=== PATIENT | male | born 1945 | race Caucasian/White ===

== ENCOUNTER 2020-09-06 08:11 | Outpatient (REF) | payer MEDICARE, SELFPAY ==
[2020-09-06 11:33] LABS: Estimated Average Glucose 160 mg/dL; Hemoglobin A1c % 7.2 %
== END 2020-09-06 08:12 | disposition home or self-care (01) ==
LOC: HO.MANLR 08:11
PROVIDERS: PCP Internal Medicine; Visit Provider Internal Medicine
DX: E11.9 Type 2 diabetes mellitus without complications (principal)
CPT/HCPCS: 83036

== ENCOUNTER 2020-12-06 08:24 | Outpatient (REF) | payer MEDICARE, SELFPAY ==
[2020-12-06 11:32] LABS: Estimated Average Glucose 148 mg/dL; Hemoglobin A1c % 6.8 %
[2020-12-06 11:54] LABS: Alanine Aminotransferase 37 U/L (0-40); Albumin Level 4.4 g/dL (3.5-5.0); Alkaline Phosphatase 56 U/L (39-117); Anion Gap 15 (12-20); Aspartate Amino Transferase 22 U/L (5-37); Bilirubin Total 1.2 mg/dL (0.0-1.0); Blood Urea Nitrogen 13 mg/dL (9-16); Calcium 9.5 mg/dL (8.4-10.2); Carbon Dioxide 27 mmol/L (22-29); Chloride 102 mmol/L (96-108); Cholesterol 121 mg/dL; Estimated Glomerular Filt Rate > 60; Glucose Fasting 164 mg/dL (60-99); HDL Cholesterol 37 mg/dL; LDL Cholesterol Calculated 55 mg/dl; Potassium 4.3 mmol/l (3.3-5.1); Sodium 140 mmol/L (135-145); Total Protein 6.9 g/dL (6.5-8.0); Triglycerides 149 mg/dL
== END 2020-12-06 08:25 | disposition home or self-care (01) ==
LOC: HO.MANLR 08:24
PROVIDERS: PCP Internal Medicine; Visit Provider Internal Medicine
DX: E11.9 Type 2 diabetes mellitus without complications (principal)
CPT/HCPCS: 36415; 80053; 80061; 83036

== ENCOUNTER 2021-04-02 08:04 | Outpatient (REF) | payer MEDICARE, SELFPAY ==
[2021-04-02 12:02] LABS: Alanine Aminotransferase 29 U/L (0-40); Albumin Level 4.4 g/dL (3.5-5.0); Alkaline Phosphatase 57 U/L (39-117); Anion Gap 13 (12-20); Aspartate Amino Transferase 20 U/L (5-37); Blood Urea Nitrogen 17 mg/dL (9-16); Calcium 9.4 mg/dL (8.4-10.2); Carbon Dioxide 28 mmol/L (22-29); Chloride 105 mmol/L (96-108); Cholesterol 115 mg/dL; Estimated Glomerular Filt Rate > 60; Glucose Fasting 147 mg/dL (60-99); HDL Cholesterol 36 mg/dL; LDL Cholesterol Calculated 61 mg/dl; Potassium 4.5 mmol/L (3.3-5.1); Sodium 141 mmol/L (135-145); Total Protein 6.8 g/dL (6.5-8.0); Triglycerides 92 mg/dL
[2021-04-02 12:12] LABS: Estimated Average Glucose 148 mg/dL; Hemoglobin A1c % 6.8 %
[2021-04-02 12:48] LABS: Creatinine Urine 236.88 mg/dL; Microalbum/Creatinine Ratio Ur 7.1 ug/mg cr
== END 2021-04-02 08:05 | disposition home or self-care (01) ==
LOC: HO.MANLDS 08:04
PROVIDERS: PCP Internal Medicine; Visit Provider Internal Medicine
DX: E11.9 Type 2 diabetes mellitus without complications (principal)
CPT/HCPCS: 36415; 80053; 80061; 82043; 83036

== ENCOUNTER 2021-07-09 08:13 | Outpatient (REF) | payer MEDICARE, SELFPAY ==
[2021-07-09 11:19] LABS: Estimated Average Glucose 131 mg/dL; Hemoglobin A1c % 6.2 %
== END 2021-07-09 08:14 | disposition home or self-care (01) ==
LOC: HO.MANLDS 08:13
PROVIDERS: PCP Internal Medicine; Visit Provider Internal Medicine
DX: E11.9 Type 2 diabetes mellitus without complications (principal)
CPT/HCPCS: 36415; 83036

== ENCOUNTER 2021-11-20 08:14 | Outpatient (REF) | payer MEDICARE, SELFPAY ==
[2021-11-20 11:39] LABS: Estimated Average Glucose 143 mg/dL; Hemoglobin A1c % 6.6 %
[2021-11-20 12:20] LABS: Creatinine Urine 197.21 mg/dL; Microalbum/Creatinine Ratio Ur 16.2 ug/mg cr
[2021-11-20 12:20] LABS: Alanine Aminotransferase 31 U/L (0-40); Albumin Level 4.3 g/dL (3.5-5.0); Alkaline Phosphatase 69 U/L (39-117); Anion Gap 11 (12-20); Aspartate Amino Transferase 20 U/L (5-37); Bilirubin Total 0.6 mg/dL (0.0-1.0); Blood Urea Nitrogen 13 mg/dL (9-16); Calcium 9.6 mg/dL (8.4-10.2); Carbon Dioxide 28 mmol/L (22-29); Chloride 105 mmol/L (96-108); Cholesterol 132 mg/dL; Estimated Glomerular Filt Rate > 60; Glucose Fasting 175 mg/dL (60-99); HDL Cholesterol 40 mg/dL; LDL Cholesterol Calculated 74 mg/dl; Potassium 4.4 mmol/L (3.3-5.1); Sodium 140 mmol/L (135-145); Total Protein 7.1 g/dL (6.5-8.0); Triglycerides 92 mg/dL
== END 2021-11-20 08:15 | disposition home or self-care (01) ==
LOC: HO.MANLDS 08:14
PROVIDERS: PCP Internal Medicine; Visit Provider Internal Medicine
DX: E11.9 Type 2 diabetes mellitus without complications (principal)
CPT/HCPCS: 36415; 80053; 80061; 82043; 83036

== ENCOUNTER 2022-04-17 08:01 | Outpatient (REF) | payer MEDICARE, SELFPAY ==
[2022-04-17 11:38] LABS: Estimated Average Glucose 143 mg/dL; Hemoglobin A1c % 6.6 %
[2022-04-17 11:50] LABS: Alanine Aminotransferase 27 U/L (0-40); Albumin Level 4.3 g/dL (3.5-5.0); Alkaline Phosphatase 53 U/L (39-117); Anion Gap 13 (12-20); Aspartate Amino Transferase 22 U/L (5-37); Blood Urea Nitrogen 21 mg/dL (9-16); Calcium 9.8 mg/dL (8.4-10.2); Carbon Dioxide 25 mmol/L (22-29); Chloride 107 mmol/L (96-108); Cholesterol 110 mg/dL; Estimated Glomerular Filt Rate 56; Glucose Random 123 mg/dL (60-115); HDL Cholesterol 39 mg/dL; LDL Cholesterol Calculated 57 mg/dl; Potassium 4.6 mmol/L (3.3-5.1); Sodium 140 mmol/L (135-145); Total Protein 6.9 g/dL (6.5-8.0); Triglycerides 73 mg/dL
[2022-04-17 11:59] LABS: Creatinine Urine 205.86 mg/dL; Microalbum/Creatinine Ratio Ur 7.7 ug/mg cr
== END 2022-04-17 08:02 | disposition home or self-care (01) ==
LOC: HO.MANLDS 08:01
PROVIDERS: Visit Provider Internal Medicine
DX: E11.9 Type 2 diabetes mellitus without complications (principal)
CPT/HCPCS: 36415; 80053; 80061; 82043; 83036

== ENCOUNTER 2022-07-30 08:24 | Outpatient (REF) | payer MEDICARE, SELFPAY ==
[2022-07-30 11:19] LABS: Estimated Average Glucose 134 mg/dL; Hemoglobin A1c % 6.3 %
[2022-07-30 11:38] LABS: Alanine Aminotransferase 24 U/L (0-40); Albumin Level 4.1 g/dL (3.5-5.0); Alkaline Phosphatase 62 U/L (39-117); Anion Gap 13 (12-20); Aspartate Amino Transferase 19 U/L (5-37); Blood Urea Nitrogen 16 mg/dL (9-16); Calcium 9.3 mg/dL (8.4-10.2); Carbon Dioxide 29 mmol/L (22-29); Chloride 103 mmol/L (96-108); Cholesterol 129 mg/dL; Estimated Glomerular Filt Rate > 60; Glucose Random 150 mg/dL (60-115); HDL Cholesterol 38 mg/dL; LDL Cholesterol Calculated 73 mg/dl; Potassium 4.7 mmol/L (3.3-5.1); Sodium 140 mmol/L (135-145); Total Protein 6.6 g/dL (6.5-8.0); Triglycerides 92 mg/dL
== END 2022-07-30 08:25 | disposition home or self-care (01) ==
LOC: HO.MANLDS 08:24
PROVIDERS: Visit Provider Internal Medicine
DX: E11.9 Type 2 diabetes mellitus without complications (principal)
CPT/HCPCS: 36415; 80053; 80061; 83036

== ENCOUNTER 2023-01-07 08:01 | Outpatient (REF) | payer MEDICARE, SELFPAY ==
[2023-01-07 11:46] LABS: Alanine Aminotransferase 33 U/L (0-40); Albumin Level 4.3 g/dL (3.5-5.0); Alkaline Phosphatase 63 U/L (39-117); Anion Gap 12 (12-20); Aspartate Amino Transferase 22 U/L (5-37); Bilirubin Total 1.5 mg/dL (0.0-1.0); Blood Urea Nitrogen 16 mg/dL (9-16); Calcium 9.5 mg/dL (8.4-10.2); Carbon Dioxide 29 mmol/L (22-29); Chloride 104 mmol/L (96-108); Cholesterol 125 mg/dL; Estimated Glomerular Filt Rate 58; Glucose Random 167 mg/dL (60-115); HDL Cholesterol 39 mg/dL; LDL Cholesterol Calculated 70 mg/dl; Potassium 4.6 mmol/L (3.3-5.1); Sodium 140 mmol/L (135-145); Total Protein 6.8 g/dL (6.5-8.0); Triglycerides 81 mg/dL
[2023-01-07 11:57] LABS: Estimated Average Glucose 157 mg/dL; Hemoglobin A1c % 7.1 %
== END 2023-01-07 08:02 | disposition home or self-care (01) ==
LOC: HO.MANLDS 08:01
PROVIDERS: Visit Provider Internal Medicine
DX: E11.9 Type 2 diabetes mellitus without complications (principal)
CPT/HCPCS: 36415; 80053; 80061; 83036

== ENCOUNTER 2023-03-14 10:00 | Inpatient (IN) | payer MEDICARE, SELFPAY ==
[2023-03-14 10:10] VITALS: BP 136/66; PULSE 95; RESP 18; TEMP 36.7; O2SAT 96; BMI 25.1
--- NOTE | 2023-03-14 10:11 | ED.GENADULT ---
HPI - General Adult General Chief complaint: Psychiatric Symptoms Stated complaint: Crisis Time Seen by Provider: 03/14/23 10:11 Source: patient and family () Mode of arrival: ambulatory Limitations: no limitations History of Present Illness HPI narrative: Patient is a 77 year old assigned male at with no reported medical history presenting to the emergency department today with increased depression / insomnia. Patient states that he has been having issues falling asleep and staying asleep. Patient states that he will sometimes get up and pace, without being able to fall back asleep. Patient states that he has been sleeping all day and wanting to isolate more, feeling more anxious about running into people he knows in the apartment building. Patient states that he was seen at [facility] 4 days ago where he had an entire work up and was found to be medically cleared. Patient denies any memory deficit, thoughts of harming himself or others, dizziness, lightheadedness, abdominal pain, nausea, vomiting, fever, chills, blurry vision, double vision, loss of vision, chest pain, difficulty breathing, shortness of breath, back pain, night sweats, pain with urination, increased urinary frequency, increased urinary urgency, blood in his urine or stool, syncope or a near syncopal episode, recent trauma or falls, bowel incontinence, bladder incontinence, bowel retention, bladder retention, or any other complaints at this time. Onset (ago): month(s) Relieving factors: none Exacerbating factors: none Associated symptoms: denies other symptoms Treatments prior to arrival: none Related Data Home Medications Medication Instructions Recorded Confirmed amlodipine 10 mg tablet 10 mg PO DAILY 03/14/23 aripiprazole 2 mg tablet 2 mg PO QPM 03/14/23 atorvastatin 80 mg tablet 80 mg PO DAILY 03/14/23 carvedilol 3.125 mg tablet 3.125 mg PO BID 03/14/23 diazepam 2 mg tablet 2 mg PO DIRECTED 03/14/23 furosemide 20 mg tablet 20 mg PO DAILY PRN edema 03/14/23 isosorbide mononitrate 60 mg 60 mg PO DAILY 03/14/23 tablet,extended release 24 hr lorazepam 0.5 mg tablet 0.5 mg PO TID 03/14/23 losartan 100 mg tablet 100 mg PO DAILY 03/14/23 metformin 1,000 mg tablet 1,000 mg PO BID 03/14/23 trazodone 50 mg tablet 50 mg PO BEDTIME PRN Sleep 03/14/23 Allergies Allergy/AdvReac Type Severity Reaction Status Date / Time No Known Allergies Allergy Verified 03/14/23 10:21 Review of Systems Constitutional: Constitutional: Reports no additional constitutional complaints, Denies chills, Denies fever(s) and Denies night sweats Eyes: Eyes: Reports no additional eye complaints, Denies blurry vision, Denies change in vision, Denies diplopia, Denies eye discharge, Denies loss of vision and Denies eye pain ENT: Denies dizziness Cardiovascular: Cardiovascular: Reports no additional cardiovascular complaints, Denies chest pain, Denies lightheadedness, Denies Loss of Consciousness and Denies dyspnea Respiratory: Respiratory: Reports no additional respiratory complaints and Denies dyspnea Gastrointestinal: Gastrointestinal: Reports no additional gastrointestinal complaints, Denies abdominal pain, Denies melena, Denies hematochezia, Denies change in bowel habits and Denies change in stool character Genitourinary: Genitourinary: Reports no additional male genitourinary complaints, Denies hematuria, Denies oliguria, Denies difficulty urinating, Denies dysuria, Denies urinary frequency, Denies urinary hesitancy, Denies urinary incontinence and Denies urinary urgency Musculoskeletal: Musculoskeletal: Reports no additional musculoskeletal complaints, Denies numbness and Denies tingling Neurologic: Denies confusion, Denies dizziness, Denies loss of vision, Denies memory loss, Denies numbness and Denies tingling Psychiatric: Psychiatric: Reports abnormal sleep pattern, Reports anxiety, Denies confusion, Reports depression, Denies memory loss, Denies homicidal ideation and Denies suicidal ideation Endocrine: Endocrine: Reports no additional endocrine complaints Hematologic/Lymphatic: Hematologic/Lymphatic: Reports no additional hematologic/lymphatic complaints Allergic/Immunologic: Allergic/Immunologic: Reports no additional allergic/immunologic complaints PMFSH Past Medical History Attestation statement: The following information was validated with the patient. (all information validated with the patient's ) Source: old records reviewed, obtained from family (patient's ), nursing notes reviewed and other (reviewed ED note on 03/10/2023 from [facility]) Social History Social History Advance Directives: Yes Advance Directives Information Provided: No Advance Directives on File: No Healthcare Proxy: No Guardian: No Physical Exam ED Vital Signs: Vital Signs - 24 hr 03/14/23 10:10 03/14/23 16:24 Temperature 98.0 F 98.0 F Pulse Rate 95 80 Respiratory Rate 18 18 Blood Pressure 136/66 126/70 Pulse Oximetry 96 98 Oxygen Delivery Method Room Air Room Air BMI result Body Mass Index 25.1 Const General: No confusion Nutritional Appearance: well nourished Orientation/consciousness: No confusion Limitations: no limitations HENMT Head: Yes normal to inspection and Yes atraumatic Ears: hearing grossly normal bilaterally and external ears normal General nose exam: Normal external nose present, no nasal discharge noted and no epistaxis Face and sinus: Yes normal facial exam, No abrasion and No laceration Mouth: Normal oral and palatal mucosa present, no drooling and no muffled voice Eyes General: appearance normal, both eyes and all related structures Periorbital: periorbital findings normal Eyelids: Yes eyelids normal Conjunctivae: conjunctivae normal Pupils: Equal, round and reactive pupils present EOM: EOMs intact bilaterally Neck Neck: Yes normal visual inspection, Yes full ROM and Yes no lymphadenopathy Chest Chest palpation & inspection: normal inspection of the chest Resp Effort & Inspection: normal respiratory effort and able to speak in complete sentences GI Inspection: Yes normal to inspection Neuro General: No confusion Cranial nerves: Yes Equal, round and reactive pupils present Cognition (Neuro): normal cognition Motor exam (neuro): 5/5 motor strength present throughout Sensory Exam: Normal double simultaneous stimulation for sensation Coordination: [id number] test normal Extrem General: Yes normal to inspection, Yes full ROM and Yes capillary refill normal Psych Appearance: grossly normal Mental Status: mental status grossly normal Speech and movement: Normal speech and movement present Affect: normal affect Attitude: cooperative Thought process: Normal thought process present Thought content: Normal thought content present Insight: Good insight present (Psych) Medical Decision Making Medical Decision Making MDM Narrative: Patient is a 77 year old assigned male at with no reported medical history presenting to the emergency department today requesting a psychiatric evaluation. Patient's physical exam was unremarkable. Patient's blood work was unremarkable. Patient's EKG was unremarkable. Patient's head CT from was unremarkable. Patient was evaluated by psychiatry who recommended psychiatric admission for medication initiation and stabilization. I explained my physical exam findings as well as all test results to the patient and the patient's . I answered all questions asked by the patient and the patient's . Patient and the patient's verbalized agreement and understanding with this treatment plan and admission. Differential Diagnosis Differential Diagnoses: The differential diagnosis associated with the presentation includes depression, dementia Consult Healthcare Provider Management of the patient was discussed with: Behavioral Health Provider (recommended psychiatric admission) Lab Data MDM Lab Attestation statement: I reviewed the patient's lab results. 03/14/23 11:49 03/14/23 11:49 Labs: Lab Results 03/14/23 03/14/23 Range/Units 11:49 11:49 WBC 10.2 (4.8-10.8) X10*3/uL RBC 5.19 (4.60-5.80) X10*6/uL Hgb 15.4 (14.0-18.0) g/dl Hct 44.7 (42.0-52.0) % MCV 86.1 (80.0-98.0) fL MCH 29.7 (27.0-33.0) pg MCHC 34.5 (31.0-36.0) g/dl RDW 12.3 (11.0-16.0) % Plt Count 261 (160-400) X10*3/uL MPV 10.7 (9.4-12.4) fL Immature Gran % (Auto) 0.3 (0.0-0.4) % Neut % (Auto) 77.1 H (45-73) % Lymph % (Auto) 14.7 L (20-40) % Martin % (Auto) 6.9 (2-11) % Eos % (Auto) 0.7 (0-4) % Baso % (Auto) 0.3 (0-2) % Lymph # (Auto) 1.5 (1.2-4.9) X10*3/uL Martin # (Auto) 0.7 (0.1-1.2) X10*3/uL Eos # (Auto) 0.1 (0.0-0.4) X10*3/uL Baso # (Auto) 0.0 (0.0-0.2) X10*3/uL Abs Immat Gran (auto) 0.03 (0.00-0.03) X10*3/uL Absolute Neuts (auto) 7.8 (2.0-8.3) x10*3/uL Absolute Nucleated RBC 0.000 (0.0-0.012) X10*3/uL Nucleated RBC % (auto) 0.0 (0.0-0.2) /100WBC Sodium 135 (135-145) mmol/L Potassium 4.4 (3.3-5.1) mmol/L Chloride 100 (96-108) mmol/L Carbon Dioxide 28 (22-29) mmol/L Anion Gap 11 L (12-20) BUN 19 H (9-16) mg/dL Creatinine 1.50 H (0.5-1.4) mg/dL Estim Creat Clear Calc 43.9 Estimated GFR 46 Random Glucose 167 H (60-115) mg/dL Calcium 9.2 (8.4-10.2) mg/dL Total Bilirubin 1.5 H (0.0-1.0) mg/dL AST 31 (5-37) U/L ALT 60 H (0-40) U/L Alkaline Phosphatase 47 (39-117) U/L Total Protein 5.9 L (6.5-8.0) g/dL Albumin 3.9 (3.5-5.0) g/dL Independent Interpretation I performed an independent interpretation of an: EKG Interpretation: Vent. Rate: 074 BPM ? ? Atrial Rate: 074 BPM P-R Int: 212 ms? QRS Dur: 182 ms QT Int: 464 ms ? ? ? P-R-T Axes: 049 -17 107 degrees QTc Int: 515 ms ? Atrial-sensed ventricular-paced rhythm with prolonged AV conduction Abnormal ECG No previous ECGs available DD/ [id number] Independent Historian Clinical information obtained from an independent historian. History obtained from or confirmed by: Spouse Critical Care Time Critical Care Time Critical Care Time: Yes Total Critical Care Time: 30 Attestation: I spent 30 minutes of Critical Care Time with this patient. This does not include time spent on separately reported billable procedures. Discharge Plan Discharge Clinical Impression: Depression, Dementia Patient Disposition: Still a Patient Prescriptions: No Action atorvastatin 80 mg tablet 80 mg PO DAILY trazodone 50 mg tablet 50 mg PO BEDTIME PRN (Reason: Sleep) carvedilol 3.125 mg tablet 3.125 mg PO BID isosorbide mononitrate 60 mg tablet extended release 24 hr 60 mg PO DAILY lorazepam 0.5 mg tablet 0.5 mg PO TID diazepam 2 mg tablet 2 mg PO DIRECTED amlodipine 10 mg tablet 10 mg PO DAILY metformin 1,000 mg tablet 1,000 mg PO BID furosemide 20 mg tablet 20 mg PO DAILY PRN (Reason: edema) losartan 100 mg tablet 100 mg PO DAILY aripiprazole 2 mg tablet 2 mg PO QPM Interventions: [place]-Suicide Risk Severity Scale Last Done: 03/14/23 10:33
--- NOTE | 2023-03-14 11:26 | ECG_ITS ---
Test Reason : MED CLEARANCE Blood Pressure : / mmHG Vent. Rate : 074 BPM Atrial Rate : 074 BPM P-R Int : 212 ms QRS Dur : 182 ms QT Int : 464 ms P-R-T Axes : 049 -17 107 degrees QTc Int : 515 ms Atrial-sensed ventricular-paced rhythm with prolonged AV conduction Abnormal ECG No previous ECGs available Referred By: Alvina Tarango Electronically Signed By:Kendall Hearn
[2023-03-14 11:55] LABS: MANUAL DIFF FLAG NO
[2023-03-14 12:01] LABS: Basophils Percent Auto 0.3 % (0-2); Eosinophils Absolute Auto 0.1 X10*3/uL (0.0-0.4); Eosinophils Percent Auto 0.7 % (0-4); Hematocrit 44.7 % (42.0-52.0); Hemoglobin 15.4 g/dl (14.0-18.0); Imm Gran Abs Auto 0.03 X10*3/uL (0.00-0.03); Imm Gran Pct Auto 0.3 % (0.0-0.4); Lymphocytes Absolute Auto 1.5 X10*3/uL (1.2-4.9); Lymphocytes Percent Auto 14.7 % (20-40); Mean Corpuscular HGB Conc 34.5 g/dl (31.0-36.0); Mean Corpuscular Hemoglobin 29.7 pg (27.0-33.0); Mean Corpuscular Volume 86.1 fL (80.0-98.0); Mean Platelet Volume 10.7 fL (9.4-12.4); Monocytes Absolute Auto 0.7 X10*3/uL (0.1-1.2); Monocytes Percent Auto 6.9 % (2-11); Neutrophils Absolute Auto 7.8 x10*3/uL (2.0-8.3); Neutrophils Percent Auto 77.1 % (45-73); Platelet Count 261 X10*3/uL (160-400); Red Blood Count 5.19 X10*6/uL (4.60-5.80); Red Cell Distribution Width 12.3 % (11.0-16.0); White Blood Count 10.2 X10*3/uL (4.8-10.8)
[2023-03-14 12:12] LABS: Alanine Aminotransferase 60 U/L (0-40); Albumin Level 3.9 g/dL (3.5-5.0); Alkaline Phosphatase 47 U/L (39-117); Anion Gap 11 (12-20); Aspartate Amino Transferase 31 U/L (5-37); Bilirubin Total 1.5 mg/dL (0.0-1.0); Blood Urea Nitrogen 19 mg/dL (9-16); Calcium 9.2 mg/dL (8.4-10.2); Carbon Dioxide 28 mmol/L (22-29); Chloride 100 mmol/L (96-108); Creatinine Clr Calc Pharmacy 43.9; Estimated Glomerular Filt Rate 46; Glucose Random 167 mg/dL (60-115); Potassium 4.4 mmol/L (3.3-5.1); Sodium 135 mmol/L (135-145); Total Protein 5.9 g/dL (6.5-8.0)
--- NOTE | 2023-03-14 14:31 | PC.NURSE ---
pt continues to rest in bed comfortably with family at bedside no obvious distress noted
--- NOTE | 2023-03-14 16:22 | MHC.CARE ---
Pt was seen by CARE team and was found to meet inpatient level of care and waiting to be transferred to S1.
[2023-03-14 16:24] VITALS: BP 126/70; PULSE 80; RESP 18; TEMP 36.7; O2SAT 98
--- NOTE | 2023-03-14 18:36 | PHA.MEDREC ---
Pharmacy Consult ? Medication Reconciliation Pharmacy has completed the medication reconciliation. spoke with pt. had a written home med list in room.
[2023-03-14 19:02] LABS: Amphetamine Screen Urine Not Detected (Not Detect); Barbiturates, Urine Not Detected (Not Detect); Benzodiazepines Screen Urine Not Detected (Not Detect); Cannabinoid Screen Urine Not Detected (Not Detect); Cocaine Screen Urine Not Detected (Not Detect); Fentanyl, urine Not Detected (Not Detect); Opiate Screen Urine Not Detected (Not Detect); Phencyclidine Screen Urine Not Detected (Not Detect)
[2023-03-14 19:04] LABS: COVID-19 Test Negative (Negative); IDNOW Serial# 9DB6401D
[2023-03-14 19:53] VITALS: BP 130/63; PULSE 90; RESP 16; TEMP 36.6; O2SAT 97
--- NOTE | 2023-03-14 20:57 | PC.NURSE ---
pt resting comfortably on stretcher, no apparent distress at this time, denies other complaints at this time. awaiting to hear about disposition at this time
[2023-03-14 22:07] VITALS: BP 135/74; PULSE 86; RESP 16; TEMP 36.3; O2SAT 98
[2023-03-15 06:20] VITALS: BP 145/78; PULSE 77; RESP 18; TEMP 36.4; O2SAT 97
[2023-03-15] MEDS: Atorvastatin Calcium 80 MG TABLET PO ×2 (06:23→19:57)
[2023-03-15] MEDS: Losartan Potassium 50 MG TABLET 100 MG PO ×2 (06:23→19:57)
[2023-03-15 07:27] VITALS: BP 125/69; PULSE 78; RESP 12; TEMP 36.3; O2SAT 98
--- NOTE | 2023-03-15 07:54 | PC.NURSE ---
received patient in bed, sleepy but arousable. Pt states he has been feeling depressed for some time, has no real hx of depression. States has lost weight, food is just not desireable . Pt will VSS as charted, able to eat breakfast, perform am care. Now napping. Plan is to transfer pt to S1. Patient and aware of plan.
[2023-03-15] MEDS: metFORMIN HCl 1,000 MG TABLET 1000 MG PO ×2 (08:19→16:27)
[2023-03-15] MEDS: carvediloL 3.125 MG TABLET PO ×2 (08:20→19:56)
[2023-03-15] MEDS: Aspirin 81 MG TAB.CHEW PO (08:20)
[2023-03-15] MEDS: amLODIPine Besylate 10 MG TABLET PO (08:20)
[2023-03-15] MEDS: Isosorbide Mononitrate 60 MG TAB.ER.24H PO (08:20)
[2023-03-15 08:23] VITALS: BP 121/70
--- NOTE | 2023-03-15 10:04 | PC.NURSE ---
ANNABELLA in room, explaining admission process to patient so he can go to his room. Understands conditional voluntary status. Awaiting bed assignment
--- NOTE | 2023-03-15 10:56 | MHC.MBSS ---
report given to nurse on S1. Patient ready for transport.
[2023-03-15 12:39] VITALS: BP 90/54; PULSE 100; RESP 17; TEMP 36.3; O2SAT 97
[2023-03-15 12:41] VITALS: BMI 23.3
--- NOTE | 2023-03-15 14:04 | P.HPPS_ITS ---
HPI Date of Service: 03/16/23 Chief Complaint: Depression HPI Narrative: most of history is taken from the CARE team libby, as pt declined to speak with MD on 03/16. per libby, pt presented to ED with his at the request of his PCP Dr. Christianson due to some months of depressive Sx. pt endorsed isolating, disrupted sleep/wake cycle, anorexia, 20 lb weight loss over 2 months, increased social anxiety. pt's reports problems with pt's attention as well. he requires her assistance to perform his ADLs now. PCP reported to CARE team pt has been medically evaluated at [facility] and [place] without any identified medical problems. no mental health history. Past Psychiatric History: pt denies any h/o mental health treatment or illness. no h/o SA, SIB. no h/o psych hosps. PCP recently tried him on ativan for sleep, which made him overly sedated. trazodone was tried next, which worked initially but then became less effective. abilify was tried next, which apparently also overly sedated pt. Medical Evaluation Reviewed: Yes [facility] Narrative: [place] in [place], h/o bundle branch block, details unclear. pacemaker Family History: per : pt's mother had a nervous breakdown shortly after pt's father her and she spent the rest of her life at [facility]. per : one of pt's sisters was recently hospitalized for 4-5 days at [facility] due to a break down. per , sister was getting fixated on her bills, and feeling unsafe in her apartment building. 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 they have a daughter who lives locally and is involved/supportive. pt lives with his in their own home. pt was born in [place], raised in [place], [place]. good childhood, 2 sisters, father mom when he was 4 yo. after divorce, pt and sisters went to be raised by paternal aunt and grandmother; bio father was not much involved. went to [employer] and then [employer], got a BA in science. Substance History: denies Trauma History: none elaborated Diagnostics Vital Signs (24Hr): Vital Signs - 24 hr 03/14/23 16:24 03/14/23 19:53 03/14/23 22:07 Temperature 98.0 F 97.8 F 97.3 F Pulse Rate 80 90 86 Respiratory Rate 18 16 16 Blood Pressure 126/70 130/63 135/74 Pulse Oximetry 98 97 98 Oxygen Delivery Method Room Air Room Air Room Air 03/15/23 06:20 03/15/23 07:27 03/15/23 08:23 Temperature 97.6 F 97.3 F Pulse Rate 77 78 Respiratory Rate 18 12 Blood Pressure 145/78 H 125/69 121/70 Pulse Oximetry 97 98 Oxygen Delivery Method Room Air Room Air 03/15/23 12:39 Temperature 97.4 F Pulse Rate 100 Respiratory Rate 17 Blood Pressure 90/54 L Pulse Oximetry 97 Oxygen Delivery Method Room Air BMI result Body Mass Index 23.3 Labs 03/14/23 11:49 03/14/23 11:49 Labs: Laboratory Results - last 48 hr 03/14/23 03/14/23 03/14/23 11:49 11:49 18:42 WBC 10.2 RBC 5.19 Hgb 15.4 Hct 44.7 MCV 86.1 MCH 29.7 MCHC 34.5 RDW 12.3 Plt Count 261 MPV 10.7 Immature Gran % (Auto) 0.3 Neut % (Auto) 77.1 H Lymph % (Auto) 14.7 L Childress % (Auto) 6.9 Eos % (Auto) 0.7 Baso % (Auto) 0.3 Lymph # (Auto) 1.5 Childress # (Auto) 0.7 Eos # (Auto) 0.1 Baso # (Auto) 0.0 Abs Immat Gran (auto) 0.03 Absolute Neuts (auto) 7.8 Absolute Nucleated RBC 0.000 Nucleated RBC % (auto) 0.0 Sodium 135 Potassium 4.4 Chloride 100 Carbon Dioxide 28 Anion Gap 11 L BUN 19 H Creatinine 1.50 H Estim Creat Clear Calc 43.9 Estimated GFR 46 Random Glucose 167 H Calcium 9.2 Total Bilirubin 1.5 H AST 31 ALT 60 H Alkaline Phosphatase 47 Total Protein 5.9 L Albumin 3.9 Urine Opiates Screen Urine Fentanyl Screen Ur Barbiturates Screen Ur Phencyclidine Scrn Ur Amphetamines Screen U Benzodiazepines Scrn Urine Cocaine Screen U Marijuana (THC) Screen COVID-19 (CARLENE) Negative COVID-19 Solazyme Com See Note 03/14/23 18:42 WBC RBC Hgb Hct MCV MCH MCHC RDW Plt Count MPV Immature Gran % (Auto) Neut % (Auto) Lymph % (Auto) Childress % (Auto) Eos % (Auto) Baso % (Auto) Lymph # (Auto) Childress # (Auto) Eos # (Auto) Baso # (Auto) Abs Immat Gran (auto) Absolute Neuts (auto) Absolute Nucleated RBC Nucleated RBC % (auto) Sodium Potassium Chloride Carbon Dioxide Anion Gap BUN Creatinine Estim Creat Clear Calc Estimated GFR Random Glucose Calcium Total Bilirubin AST ALT Alkaline Phosphatase Total Protein Albumin Urine Opiates Screen Not Detected Urine Fentanyl Screen Not Detected Ur Barbiturates Screen Not Detected Ur Phencyclidine Scrn Not Detected Ur Amphetamines Screen Not Detected U Benzodiazepines Scrn Not Detected Urine Cocaine Screen Not Detected U Marijuana (THC) Screen Not Detected COVID-19 (CARLENE) COVID-19 PacketSled Meds/Allergies Meds Home Medications Medication Instructions Recorded Confirmed Type amlodipine 10 mg tablet 10 mg PO DAILY 03/14/23 03/14/23 History aspirin 81 mg chewable tablet 81 mg PO DAILY 03/14/23 03/14/23 History atorvastatin 80 mg tablet 80 mg PO BEDTIME 03/14/23 03/14/23 History carvedilol 3.125 mg tablet 3.125 mg PO BID 03/14/23 03/14/23 History isosorbide mononitrate 60 mg 60 mg PO DAILY 03/14/23 03/14/23 History tablet,extended release 24 hr losartan 100 mg tablet 100 mg PO BEDTIME 03/14/23 03/14/23 History metformin 1,000 mg tablet 1,000 mg PO BID 03/14/23 03/14/23 History Allergies Allergies Allergy/AdvReac Type Severity Reaction Status Date / Time No Known Allergies Allergy Verified 03/14/23 10:21 Mental Status Exam Mental Status Exam Narrative: adequately dressed and groomed, no PMA/PMR, declining interview until after his family members have a chance to visit. speech nml rate, amount, loudness, tone, latency. thoughts linear and logical. affect constricted, normo-intense, non- labile. mood not assessed. no SI/HI/AVH expressed. Assessment & Plan Assessment & Plan (1) Major depressive disorder: Status: Acute Code(s): F32.9 - Major depressive disorder, single episode, unspecified Plan continue abilify 2 mg at HS. T/C seroquel as an alternative for appetite stimulation. trial of remeron for depression and decreased appetite. assess cognition. collect collateral from and PCP Meghan. Patient educated on: other Reason for continued inpatient stay Substantial Risk for: harm to self and inability to function Statement Statement: I have reviewed the history and physical and performed a pertinent examination on my patient. No changes have occurred unless specified. If the History and Physical was not performed prior to admission, the Hospitalist's service will be consulted for completing the admission physical. Time Spent With Patient Time: Total time managing care of this patient today _30___ minutes.
--- NOTE | 2023-03-15 14:14 | PC.NURSE ---
Addendum entered by Rosa Rodrigez RN 03/15/23 14:33: 15 minute safety checks. Original Note: 77 y.o. Male brought from [facility] on a CV for psychiatric evaluation. Per Crisis reports; Pt has been isolating and sleeping for long periods of time, he has not been wasting and lost 20lbs. Pt was seen a medical facilities and medically cleared with workup unremarkable. Pt has no hx of mental illness. On admission: Pt A&O, pleasant and cooperative. Pt reports anxiety and denies depression. Pt reports that he is APACHE and ambulates independently at baseline. Gait steady. Pt reports I went to local hospitals to get relief in regards to his symptoms of hearing and him feeling not well. Pt reports that I thought they can fix this and it will go away . Pt additionally reports that he has been going to bed at 6pm and that it is not normal for him. Pt reports that he takes a couple bites of his food and does not have desire to finish his meals which has caused him to lose 20lbs. Pt denies si,hi,avh at this time. HCP form in chart. Pt PMH: Pacemaker, HTN, DM, HLD. Pt on 5 min safety checks. Case discussed with .
[2023-03-15 18:00] VITALS: BP 115/63; PULSE 78; RESP 18; TEMP 36.2; O2SAT 96
[2023-03-15] MEDS: Mirtazapine 7.5 MG TABLET PO (19:57)
[2023-03-15] MEDS: ARIPiprazole 2 MG TABLET PO (19:57)
[2023-03-16 07:48] LABS: Glucose, Whole Blood 130 mg/dL (60-115)
[2023-03-16 08:26] LABS: Alanine Aminotransferase 53 U/L (0-40); Albumin Level 3.7 g/dL (3.5-5.0); Alkaline Phosphatase 47 U/L (39-117); Anion Gap 14 (12-20); Aspartate Amino Transferase 29 U/L (5-37); Bilirubin Total 1.5 mg/dL (0.0-1.0); Blood Urea Nitrogen 21 mg/dL (9-16); Calcium 9.2 mg/dL (8.4-10.2); Carbon Dioxide 23 mmol/L (22-29); Chloride 103 mmol/L (96-108); Cholesterol 76 mg/dL; Creatinine Clr Calc Pharmacy 48.8; Estimated Glomerular Filt Rate 52; Glucose Fasting 127 mg/dL (60-99); HDL Cholesterol 29 mg/dL; Potassium 3.9 mmol/L (3.3-5.1); Sodium 136 mmol/L (135-145); Total Protein 5.5 g/dL (6.5-8.0)
[2023-03-16 08:33] LABS: Estimated Average Glucose 171 mg/dL; Hemoglobin A1c % 7.6 %
[2023-03-16 08:54] LABS: Folate 11.4 ng/mL (> or = 4.0); Free T4 (Free Thyroxine) 1.37 ng/dL (0.71-1.85); Thyroid Stimulating Hormone 1.71 uIU/mL (0.32-4.0); Vitamin B12 217 pg/mL (200-900)
[2023-03-16 09:20] VITALS: BP 118/56; PULSE 85; RESP 16; TEMP 36.6; O2SAT 96
[2023-03-16] MEDS: metFORMIN HCl 1,000 MG TABLET 1000 MG PO ×2 (09:20→16:32)
[2023-03-16] MEDS: Isosorbide Mononitrate 60 MG TAB.ER.24H PO (09:20)
[2023-03-16] MEDS: amLODIPine Besylate 10 MG TABLET PO (09:20)
[2023-03-16] MEDS: Aspirin 81 MG TAB.CHEW PO (09:20)
[2023-03-16] MEDS: carvediloL 3.125 MG TABLET PO ×2 (09:21→21:25)
[2023-03-16 18:00] VITALS: BP 109/56; PULSE 80; TEMP 36.1; O2SAT 97
[2023-03-16] MEDS: ARIPiprazole 2 MG TABLET PO (21:25)
[2023-03-16] MEDS: Losartan Potassium 50 MG TABLET 100 MG PO (21:26)
[2023-03-16] MEDS: Atorvastatin Calcium 80 MG TABLET PO (21:26)
[2023-03-16] MEDS: Mirtazapine 7.5 MG TABLET PO (21:26)
[2023-03-17 06:00] VITALS: BP 112/64; PULSE 74; RESP 18; TEMP 36.1; O2SAT 97
[2023-03-17] MEDS: Isosorbide Mononitrate 60 MG TAB.ER.24H PO (08:46)
[2023-03-17] MEDS: carvediloL 3.125 MG TABLET PO (08:46)
[2023-03-17] MEDS: amLODIPine Besylate 10 MG TABLET PO (08:47)
[2023-03-17] MEDS: metFORMIN HCl 1,000 MG TABLET 1000 MG PO (08:47)
[2023-03-17] MEDS: Aspirin 81 MG TAB.CHEW PO (08:47)
[2023-03-17] MEDS: Loperamide HCl 2 MG CAPSULE 4 MG PO (10:37)
[2023-03-17] MEDS: Magnesium Hydrox/Alum Hydrox 30 ML ORAL.SUSP PO (13:20)
--- NOTE | 2023-03-17 13:23 | MHC.CLN ---
Addendum entered by Vanita Larkin, MALIHA 03/17/23 13:29: ADDED ENSURE BID TO IMPROVE NUTRITIONAL INTAKE. SUPPLEMENT PROVIDES 700 KCALS, 40 G PROTEIN. Original Note: NUTRITION VISITED WITH PATIENT IN HIS ROOM. REFUSED LUNCH TODAY DUE TO GI CONCERNS. STAFF OFFERED ALTERNATE ITEMS AND PATIENT DECLINED. REGARDING WEIGHT LOSS, PATIENT STATED THAT HE WEIGHED 291# AND NOW WEIGHS 268# (-7.9%). CURRENT WEIGHT RECORDED 73.709 KG, 162#. APPEARED CONFUSED AT VISIT ASKING IF HE LOST 20# WHILE HERE (ADM 03/15). HAS ORDER FOR TRIAL OF REMERON FOR DEPRESSION AND DECREASED APPETITE. FOLLOW WEEKLY FOR INTAKE AND WEIGHT.
--- NOTE | 2023-03-17 14:40 | HO.PSYCHPN ---
Subjective Subjective Date of Service: 03/17/23 Reason For Visit: Depression Subjective Notes: Conditional Voluntary Interim History: Pt has been presenting with changes in mood in the past 3 months. Per , pt initially presented as not sleeping, very restless, to not wanting to go out because he thought he couldn't hear and was worried other will find out. Per , pt was watching window to make sure no one was coming to their house. No overt paranoia but some degree of suspiciousness. Pt also has been mostly in bed, not eating as much. He has apparently loss 20 Lbs in past 6 months. He denies suicidal ideation but it appears that he had reported to his PCP that he had suicidal ideation. No hx of suicide attempts. No prior psych hx. Today, pt mostly in bed. He reports episode of loose stool since yesterday. He did receive loperamide with good effect. He denies abdominal pain. No vomiting. Pt afebrile. Discussed with pt and that B12 on lower side- supplement with parentenal to see effects on mood and cognition. Also, based on his current creatine clearance- dose of metformin should not exceed 1000mg/day. Pending lactic acid levels as they can be increase with metformin in decrease creatinine clearance. Medication Compliance: Yes Mental Status Exam Mental Status Exam Narrative: Appearance: wearing hospital gown, fair hygiene, in NAD behavior: not wanting to prolong conversation, superficially cooperative Psychomotor: some slight retardation Speech: clear, regular rate/rhythm/volume, spontaneous TP: mostly linear TC: no overt psychosis, feeling tired Mood: tired Affect: congruent, constricted SI: denies HI: denies VH/AH: none Delusions: none Insight/judgment: poor x 2. Memory/cog: alert, oriented x 3. pending moca. do suspect underlying cognitive impairment. Diagnostics Vital Signs (24Hr): Vital Signs - 24 hr 03/16/23 18:00 03/17/23 06:00 Temperature 97.0 F 97 F Pulse Rate 80 74 Respiratory Rate 18 Blood Pressure 109/56 L 112/64 Pulse Oximetry 97 97 Oxygen Delivery Method Room Air Room Air BMI result Body Mass Index 23.3 Labs 03/14/23 11:49 03/16/23 07:37 Labs: Laboratory Results - last 48 hr 03/16/23 03/16/23 03/16/23 07:33 07:37 07:37 Sodium 136 Potassium 3.9 Chloride 103 Carbon Dioxide 23 Anion Gap 14 BUN 21 H Creatinine 1.35 Estim Creat Clear Calc 48.8 Estimated GFR 52 POC Glucose 130 H Fasting Glucose 127 H Estimat Average Glucose 171 Hemoglobin A1c % 7.6 Calcium 9.2 Total Bilirubin 1.5 H AST 29 ALT 53 H Alkaline Phosphatase 47 Total Protein 5.5 L Albumin 3.7 Triglycerides 68 Cholesterol 76 LDL Cholesterol, Calc 34 HDL Cholesterol 29 Vitamin B12 217 Folate 11.4 TSH 1.71 Free T4 1.37 Medications Medications Current Medications Acetaminophen (Acetaminophen 325 Mg Tablet) 650 mg PO Q6H PRN PRN Reason: Headache/Pain Mild Scale (1-3) Al Hydroxide/Mg Hydroxide (Magnesium Hydrox/Alum Hydrox 30 Ml Oral.Susp) 30 ml PO Q6H PRN PRN Reason: Heartburn/Nausea Last Admin: 03/17/23 13:20 Dose: 30 ml Amlodipine Besylate (Amlodipine Besylate 10 Mg Tablet) 10 mg PO DAILY [facility]; Protocol Last Admin: 03/17/23 08:47 Dose: 10 mg Aspirin (Aspirin 81 Mg Tab.Chew) 81 mg PO DAILY [facility] Last Admin: 03/17/23 08:47 Dose: 81 mg Atorvastatin Calcium (Atorvastatin Calcium 80 Mg Tablet) 80 mg PO BEDTIME [facility] Last Admin: 03/16/23 21:26 Dose: 80 mg Carvedilol (Carvedilol 3.125 Mg Tablet) 3.125 mg PO BID [facility]; Protocol Last Admin: 03/17/23 08:46 Dose: 3.125 mg Isosorbide Mononitrate (Isosorbide Mononitrate 60 Mg Tab.Er.24h) 60 mg PO DAILY [facility]; Protocol Last Admin: 03/17/23 08:46 Dose: 60 mg Loperamide HCl (Loperamide Hcl 2 Mg Capsule) 4 mg PO Q6H PRN PRN Reason: Diarrhea Last Admin: 03/17/23 10:37 Dose: 4 mg Losartan Potassium (Losartan Potassium 50 Mg Tablet) 100 mg PO BEDTIME [facility]; Protocol Last Admin: 03/16/23 21:26 Dose: 100 mg Magnesium Hydroxide (Milk Of Magnesia 30 Ml Oral.Susp) 30 ml PO DAILY PRN PRN Reason: Constipation Metformin HCl (Metformin Hcl 1,000 Mg Tablet) 1,000 mg PO BIDWM [facility] Last Admin: 03/17/23 08:47 Dose: 1,000 mg Mirtazapine (Mirtazapine 7.5 Mg Tablet) 7.5 mg PO BEDTIME [facility] Last Admin: 03/16/23 21:26 Dose: 7.5 mg Allergies Allergies Allergy/AdvReac Type Severity Reaction Status Date / Time No Known Allergies Allergy Verified 03/14/23 10:21 Assessment & Plan Assessment & Plan (1) Major depressive disorder: Status: Acute Code(s): F32.9 - Major depressive disorder, single episode, unspecified Plan Mr. Larkin is a 77 year-old male who was brought by to [facility] [place] [facility] as pt has been presenting as more anxious alternating between over sleeping to not sleeping at night and then sleeping during the day, not eating as much. Pt recently admitted at [facility]- had medical work up that included head CT which showed atrophy and microvascular changes but no acute findings, cbc with no signs of infection, elevated BUN, Cr, given IV fluids. PLAN 03/17- decrease metformin dose from 1000mg po BID to 500mg po BID given that creatinine clearance is less than 60. B12 is in lower end 217-> will supplement with cyonocobalamine 1000mgc IM qweekly to assess effects on mood/cognition. Increase remeron 15mg po qhs. hold on abilify as had reported side effect although unclear at this point. Pending MOCA and ACL, I do suspect pt may have underlying vascular dementia. Patient educated on: diagnosis and medication risk/benefits Guardian/Caregiver educated on: diagnosis and medication risk/benefits Informed Consent: understands Reason for continued inpatient stay Substantial Risk for: inability to function Time Spent With Patient Time: Total time managing care of this patient today _30___ minutes.
[2023-03-17] MEDS: metFORMIN HCl 500 MG TABLET PO (16:20)
[2023-03-17 19:56] VITALS: BP 92/57; PULSE 90; RESP 18; TEMP 36.3; O2SAT 98
[2023-03-17] MEDS: Mirtazapine 7.5 MG TABLET PO (20:49)
[2023-03-17] MEDS: Atorvastatin Calcium 80 MG TABLET PO (20:49)
[2023-03-18] MEDS: carvediloL 3.125 MG TABLET PO ×2 (08:59→21:00)
[2023-03-18] MEDS: metFORMIN HCl 500 MG TABLET PO ×2 (08:59→16:42)
[2023-03-18 09:00] VITALS: BP 146/70; PULSE 88; RESP 16; TEMP 36.5; O2SAT 99
[2023-03-18] MEDS: Isosorbide Mononitrate 60 MG TAB.ER.24H PO (09:00)
[2023-03-18] MEDS: Aspirin 81 MG TAB.CHEW PO (09:00)
[2023-03-18] MEDS: amLODIPine Besylate 10 MG TABLET PO (09:00)
[2023-03-18] MEDS: Cyanocobalamin (Vitamin B-12) 1,000 MCG/ML VIAL 1000 MCG IM (11:18)
--- NOTE | 2023-03-18 17:33 | HO.PSYCHPN ---
Subjective Subjective Date of Service: 03/18/23 Reason For Visit: Depression Subjective Notes: Conditional Voluntary Interim History: Pt has been mostly in his bed. He has been visible for meal but difficult to engage in conversation as he quickly tries to end conversation. He denies SI/HI. He reports feeling fatigued but denies any other physical concerns. He did received cyanocobalamine 1000mcg IM today. He completed ACL- 4.0 showing moderate cognitive impairment. He was not able to complete MOCA- as he quickly became overwhelmed. Medication Compliance: Yes Review of Systems Constitutional: Reports no additional constitutional complaints, Denies chills, Denies fever(s) and Denies night sweats Eyes: Reports no additional eye complaints, Denies blurry vision, Denies change in vision, Denies diplopia, Denies eye discharge, Denies loss of vision and Denies eye pain Denies dizziness Cardiovascular: Reports no additional cardiovascular complaints, Denies chest pain, Denies lightheadedness, Denies Loss of Consciousness and Denies dyspnea Respiratory: Reports no additional respiratory complaints and Denies dyspnea Gastrointestinal: Reports no additional gastrointestinal complaints, Denies abdominal pain, Denies melena, Denies hematochezia, Denies change in bowel habits and Denies change in stool character Genitourinary: Reports no additional male genitourinary complaints, Denies hematuria, Denies oliguria, Denies difficulty urinating, Denies dysuria, Denies urinary frequency, Denies urinary hesitancy, Denies urinary incontinence and Denies urinary urgency Musculoskeletal: Reports no additional musculoskeletal complaints, Denies numbness and Denies tingling Denies confusion, Denies dizziness, Denies loss of vision, Denies memory loss, Denies numbness and Denies tingling Psychiatric: Reports abnormal sleep pattern, Reports anxiety, Denies confusion, Reports depression, Denies memory loss, Denies homicidal ideation and Denies suicidal ideation Endocrine: Reports no additional endocrine complaints Hematologic/Lymphatic: Reports no additional hematologic/lymphatic complaints Allergic/Immunologic: Reports no additional allergic/immunologic complaints Mental Status Exam Mental Status Exam Narrative: Appearance: wearing hospital gown, fair hygiene, in NAD behavior: not wanting to prolong conversation, superficially cooperative Psychomotor: some slight retardation Speech: clear, regular rate/rhythm/volume, spontaneous TP: mostly linear TC: no overt psychosis, feeling tired Mood: tired Affect: congruent, constricted SI: denies HI: denies VH/AH: none Delusions: none Insight/judgment: poor x 2. Memory/cog: alert, oriented x 3. pending moca. do suspect underlying cognitive impairment. Diagnostics Vital Signs (24Hr): Vital Signs - 24 hr 03/17/23 19:56 03/18/23 09:00 Temperature 97.4 F 97.7 F Pulse Rate 90 88 Respiratory Rate 18 16 Blood Pressure 92/57 L 146/70 H Pulse Oximetry 98 99 Oxygen Delivery Method Room Air Room Air BMI result Body Mass Index 23.3 Labs 03/14/23 11:49 03/16/23 07:37 Medications Medications Current Medications Acetaminophen (Acetaminophen 325 Mg Tablet) 650 mg PO Q6H PRN PRN Reason: Headache/Pain Mild Scale (1-3) Al Hydroxide/Mg Hydroxide (Magnesium Hydrox/Alum Hydrox 30 Ml Oral.Susp) 30 ml PO Q6H PRN PRN Reason: Heartburn/Nausea Last Admin: 03/17/23 13:20 Dose: 30 ml Amlodipine Besylate (Amlodipine Besylate 10 Mg Tablet) 10 mg PO DAILY [facility]; Protocol Last Admin: 03/18/23 09:00 Dose: 10 mg Aspirin (Aspirin 81 Mg Tab.Chew) 81 mg PO DAILY [facility] Last Admin: 03/18/23 09:00 Dose: 81 mg Atorvastatin Calcium (Atorvastatin Calcium 80 Mg Tablet) 80 mg PO BEDTIME [facility] Last Admin: 03/17/23 20:49 Dose: 80 mg Carvedilol (Carvedilol 3.125 Mg Tablet) 3.125 mg PO BID [facility]; Protocol Last Admin: 03/18/23 08:59 Dose: 3.125 mg Cyanocobalamin (Cyanocobalamin (Vitamin B-12) 1,000 Mcg/Ml Vial) 1,000 mcg IM Q7D [facility] Stop: 04/08/23 08:01 Last Admin: 03/18/23 11:18 Dose: 1,000 mcg Isosorbide Mononitrate (Isosorbide Mononitrate 60 Mg Tab.Er.24h) 60 mg PO DAILY [facility]; Protocol Last Admin: 03/18/23 09:00 Dose: 60 mg Loperamide HCl (Loperamide Hcl 2 Mg Capsule) 4 mg PO Q6H PRN PRN Reason: Diarrhea Last Admin: 03/17/23 10:37 Dose: 4 mg Losartan Potassium (Losartan Potassium 50 Mg Tablet) 100 mg PO BEDTIME [facility]; Protocol Last Admin: 03/17/23 20:50 Dose: Not Given Magnesium Hydroxide (Milk Of Magnesia 30 Ml Oral.Susp) 30 ml PO DAILY PRN PRN Reason: Constipation Metformin HCl (Metformin Hcl 500 Mg Tablet) 500 mg PO BIDWM [facility] Last Admin: 03/18/23 16:42 Dose: 500 mg Mirtazapine (Mirtazapine 7.5 Mg Tablet) 7.5 mg PO BEDTIME [facility] Last Admin: 03/17/23 20:49 Dose: 7.5 mg Allergies Allergies Allergy/AdvReac Type Severity Reaction Status Date / Time No Known Allergies Allergy Verified 03/14/23 10:21 Assessment & Plan Assessment & Plan (1) Major depressive disorder: Status: Acute Code(s): F32.9 - Major depressive disorder, single episode, unspecified Plan Mr. Larkin is a 77 year-old male who was brought by [place] [facility] [place] [facility] as pt has been presenting as more anxious alternating between over sleeping to not sleeping at night and then sleeping during the day, not eating as much. Pt recently admitted at [facility]- had medical work up that included head CT which showed atrophy and microvascular changes but no acute findings, cbc with no signs of infection, elevated BUN, Cr, given IV fluids. PLAN 03/17- decrease metformin dose from 1000mg po BID to 500mg po BID given that creatinine clearance is less than 60. B12 is in lower end 217-> will supplement with cyonocobalamine 1000mgc IM qweekly to assess effects on mood/cognition. Increase remeron 15mg po qhs. hold on abilify as had reported side effect although unclear at this point. Pending MOCA and ACL, I do suspect pt may have underlying vascular dementia. 5/2 pt continues to present as very flat and not engaging in much interaction, poverty of thought, not functioning as he was. I do suspect this is s/s to dementing process with mood changes and withdrawal Reason for continued inpatient stay Substantial Risk for: inability to function Time Spent With Patient Time: Total time managing care of this patient today ____ minutes.
[2023-03-18 18:00] VITALS: BP 117/59; PULSE 76; RESP 18; TEMP 36.8; O2SAT 96
[2023-03-18] MEDS: Atorvastatin Calcium 80 MG TABLET PO (20:59)
[2023-03-18] MEDS: Losartan Potassium 50 MG TABLET 100 MG PO (21:00)
[2023-03-18] MEDS: Mirtazapine 7.5 MG TABLET PO (21:01)
[2023-03-19 08:15] VITALS: BP 107/54; PULSE 83; RESP 16; TEMP 36.4; O2SAT 98
[2023-03-19] MEDS: metFORMIN HCl 500 MG TABLET PO ×2 (08:38→16:39)
[2023-03-19] MEDS: Isosorbide Mononitrate 60 MG TAB.ER.24H PO (08:38)
[2023-03-19] MEDS: carvediloL 3.125 MG TABLET PO ×2 (08:38→20:55)
[2023-03-19] MEDS: amLODIPine Besylate 10 MG TABLET PO (08:39)
[2023-03-19] MEDS: Aspirin 81 MG TAB.CHEW PO (08:39)
--- NOTE | 2023-03-19 08:39 | HO.PSYCHPN ---
Subjective Subjective Date of Service: 03/19/23 Reason For Visit: Depression Subjective Notes: Conditional Voluntary Interim History: Pt tells this writer editor that he is not receiving any more visits today. Although he does report this is not his home, he is not sure what type of place this is. He denies SI/HI. He reports feeling more energy. attempts to end conversation several times, asking this writer editor just come tomorrow to my place or I come here. Mental Status Exam Mental Status Exam Narrative: Appearance: wearing hospital gown, fair hygiene, in NAD behavior: not wanting to prolong conversation, superficially cooperative Psychomotor: some slight retardation Speech: clear, regular rate/rhythm/volume, spontaneous TP: mostly linear TC: no overt psychosis, feeling tired Mood: tired Affect: congruent, constricted SI: denies HI: denies VH/AH: none Delusions: none Insight/judgment: poor x 2. Memory/cog: alert, oriented x 3. pending moca. do suspect underlying cognitive impairment. Diagnostics Vital Signs (24Hr): Vital Signs - 24 hr 03/18/23 09:00 03/18/23 18:00 Temperature 97.7 F 98.2 F Pulse Rate 88 76 Respiratory Rate 16 18 Blood Pressure 146/70 H 117/59 L Pulse Oximetry 99 96 Oxygen Delivery Method Room Air Room Air BMI result Body Mass Index 23.3 Labs 03/14/23 11:49 03/16/23 07:37 Medications Medications Current Medications Acetaminophen (Acetaminophen 325 Mg Tablet) 650 mg PO Q6H PRN PRN Reason: Headache/Pain Mild Scale (1-3) Al Hydroxide/Mg Hydroxide (Magnesium Hydrox/Alum Hydrox 30 Ml Oral.Susp) 30 ml PO Q6H PRN PRN Reason: Heartburn/Nausea Last Admin: 03/17/23 13:20 Dose: 30 ml Amlodipine Besylate (Amlodipine Besylate 10 Mg Tablet) 10 mg PO DAILY [facility]; Protocol Last Admin: 03/18/23 09:00 Dose: 10 mg Aspirin (Aspirin 81 Mg Tab.Chew) 81 mg PO DAILY [facility] Last Admin: 03/18/23 09:00 Dose: 81 mg Atorvastatin Calcium (Atorvastatin Calcium 80 Mg Tablet) 80 mg PO BEDTIME [facility] Last Admin: 03/18/23 20:59 Dose: 80 mg Carvedilol (Carvedilol 3.125 Mg Tablet) 3.125 mg PO BID [facility]; Protocol Last Admin: 03/18/23 21:00 Dose: 3.125 mg Cyanocobalamin (Cyanocobalamin (Vitamin B-12) 1,000 Mcg/Ml Vial) 1,000 mcg IM Q7D [facility] Stop: 04/08/23 08:01 Last Admin: 03/18/23 11:18 Dose: 1,000 mcg Isosorbide Mononitrate (Isosorbide Mononitrate 60 Mg Tab.Er.24h) 60 mg PO DAILY [facility]; Protocol Last Admin: 03/18/23 09:00 Dose: 60 mg Loperamide HCl (Loperamide Hcl 2 Mg Capsule) 4 mg PO Q6H PRN PRN Reason: Diarrhea Last Admin: 03/17/23 10:37 Dose: 4 mg Losartan Potassium (Losartan Potassium 50 Mg Tablet) 100 mg PO BEDTIME [facility]; Protocol Last Admin: 03/18/23 21:00 Dose: 100 mg Magnesium Hydroxide (Milk Of Magnesia 30 Ml Oral.Susp) 30 ml PO DAILY PRN PRN Reason: Constipation Metformin HCl (Metformin Hcl 500 Mg Tablet) 500 mg PO BIDWM [facility] Last Admin: 03/18/23 16:42 Dose: 500 mg Mirtazapine (Mirtazapine 7.5 Mg Tablet) 7.5 mg PO BEDTIME [facility] Last Admin: 03/18/23 21:01 Dose: 7.5 mg Allergies Allergies Allergy/AdvReac Type Severity Reaction Status Date / Time No Known Allergies Allergy Verified 03/14/23 10:21 Assessment & Plan Assessment & Plan (1) Major neurocognitive disorder due to vascular disease, without behavioral disturbance, severe: Status: Acute Code(s): F01.C0 - Vascular dementia, severe, without behavioral disturbance, psychotic disturbance, mood disturbance, and anxiety (2) Major depressive disorder: Status: Acute Code(s): F32.9 - Major depressive disorder, single episode, unspecified Plan Mr. Larkin is a 77 year-old male who was brought by to [facility] [place] [facility] as pt has been presenting as more anxious alternating between over sleeping to not sleeping at night and then sleeping during the day, not eating as much. Pt recently admitted at [facility]- had medical work up that included head CT which showed atrophy and microvascular changes but no acute findings, cbc with no signs of infection, elevated BUN, Cr, given IV fluids. PLAN 5/1- decrease metformin dose from 1000mg po BID to 500mg po BID given that creatinine clearance is less than 60. B12 is in lower end 217-> will supplement with cyonocobalamine 1000mgc IM qweekly to assess effects on mood/cognition. Increase remeron 15mg po qhs. hold on abilify as had reported side effect although unclear at this point. Pending MOCA and ACL, I do suspect pt may have underlying vascular dementia. 5/2 pt continues to present as very flat and not engaging in much interaction, poverty of thought, not functioning as he was. I do suspect this is s/s to dementing process with mood changes and withdrawal 5/3 continue tx. Reason for continued inpatient stay Substantial Risk for: inability to function Time Spent With Patient Time: Total time managing care of this patient today ____ minutes.
[2023-03-19] MEDS: Acetaminophen 325 MG TABLET 650 MG PO (15:51)
[2023-03-19 17:03] LABS: LDL Cholesterol Calculated 28 mg/dl; Triglycerides 96 mg/dL
[2023-03-19 18:00] VITALS: BP 132/64; PULSE 79; RESP 16; TEMP 36.2; O2SAT 95
[2023-03-19] MEDS: Mirtazapine 7.5 MG TABLET PO (20:54)
[2023-03-19] MEDS: Losartan Potassium 50 MG TABLET 100 MG PO (20:54)
[2023-03-19] MEDS: Atorvastatin Calcium 80 MG TABLET PO (20:55)
[2023-03-20 07:00] VITALS: BMI 23.7
[2023-03-20 08:46] VITALS: BP 106/52; PULSE 72; RESP 18; TEMP 36.2; O2SAT 97
[2023-03-20] MEDS: Aspirin 81 MG TAB.CHEW PO (08:48)
[2023-03-20] MEDS: metFORMIN HCl 500 MG TABLET PO ×2 (08:48→17:08)
[2023-03-20 18:00] VITALS: BP 125/79; PULSE 85; RESP 18; TEMP 36.2; O2SAT 98
[2023-03-20] MEDS: Losartan Potassium 50 MG TABLET 100 MG PO (20:40)
[2023-03-20] MEDS: Mirtazapine 7.5 MG TABLET PO (20:40)
[2023-03-20] MEDS: Atorvastatin Calcium 80 MG TABLET PO (20:40)
[2023-03-20] MEDS: carvediloL 3.125 MG TABLET PO (20:40)
--- NOTE | 2023-03-21 07:00 | HO.PSYCHPN ---
Subjective Subjective Date of Service: 03/20/23 Reason For Visit: Depression Subjective Notes: Conditional Voluntary Interim History: family meeting held today. discussed with family, dx of dementia, current tx. Pt has been more visble and social with select peers, brief conversation when approached by this typewriter repairer, limited insight into cognitive impairments and need for additional supports at home. No combative behaviors. Pt slept through the night. Medication Compliance: Yes Review of Systems Constitutional: Reports no additional constitutional complaints, Denies chills, Denies fever(s) and Denies night sweats Eyes: Reports no additional eye complaints, Denies blurry vision, Denies change in vision, Denies diplopia, Denies eye discharge, Denies loss of vision and Denies eye pain Denies dizziness Cardiovascular: Reports no additional cardiovascular complaints, Denies chest pain, Denies lightheadedness, Denies Loss of Consciousness and Denies dyspnea Respiratory: Reports no additional respiratory complaints and Denies dyspnea Gastrointestinal: Reports no additional gastrointestinal complaints, Denies abdominal pain, Denies melena, Denies hematochezia, Denies change in bowel habits and Denies change in stool character Genitourinary: Reports no additional male genitourinary complaints, Denies hematuria, Denies oliguria, Denies difficulty urinating, Denies dysuria, Denies urinary frequency, Denies urinary hesitancy, Denies urinary incontinence and Denies urinary urgency Musculoskeletal: Reports no additional musculoskeletal complaints, Denies numbness and Denies tingling Denies confusion, Denies dizziness, Denies loss of vision, Denies memory loss, Denies numbness and Denies tingling Psychiatric: Reports abnormal sleep pattern, Reports anxiety, Denies confusion, Reports depression, Denies memory loss, Denies homicidal ideation and Denies suicidal ideation Endocrine: Reports no additional endocrine complaints Hematologic/Lymphatic: Reports no additional hematologic/lymphatic complaints Allergic/Immunologic: Reports no additional allergic/immunologic complaints Mental Status Exam Mental Status Exam Narrative: Appearance: wearing hospital gown, fair hygiene, in NAD behavior: not wanting to prolong conversation, superficially cooperative Psychomotor: some slight retardation Speech: clear, regular rate/rhythm/volume, spontaneous TP: mostly linear TC: no overt psychosis, feeling tired Mood: tired Affect: congruent, constricted SI: denies HI: denies VH/AH: none Delusions: none Insight/judgment: poor x 2. Memory/cog: alert, oriented x 3. pending moca. do suspect underlying cognitive impairment. Diagnostics Vital Signs (24Hr): Vital Signs - 24 hr 03/20/23 08:46 03/20/23 18:00 Temperature 97.2 F 97.1 F Pulse Rate 72 85 Respiratory Rate 18 18 Blood Pressure 106/52 L 125/79 Pulse Oximetry 97 98 Oxygen Delivery Method Room Air Room Air BMI result Body Mass Index 23.7 Labs 03/14/23 11:49 03/16/23 07:37 Labs: Laboratory Results - last 48 hr 03/16/23 07:37 Triglycerides 96 LDL Cholesterol, Calc 28 Medications Medications Current Medications Acetaminophen (Acetaminophen 325 Mg Tablet) 650 mg PO Q6H PRN PRN Reason: Headache/Pain Mild Scale (1-3) Last Admin: 03/19/23 15:51 Dose: 650 mg Al Hydroxide/Mg Hydroxide (Magnesium Hydrox/Alum Hydrox 30 Ml Oral.Susp) 30 ml PO Q6H PRN PRN Reason: Heartburn/Nausea Last Admin: 03/17/23 13:20 Dose: 30 ml Amlodipine Besylate (Amlodipine Besylate 10 Mg Tablet) 10 mg PO DAILY [facility]; Protocol Last Admin: 03/20/23 09:07 Dose: Not Given Aspirin (Aspirin 81 Mg Tab.Chew) 81 mg PO DAILY [facility] Last Admin: 03/20/23 08:48 Dose: 81 mg Atorvastatin Calcium (Atorvastatin Calcium 80 Mg Tablet) 80 mg PO BEDTIME [facility] Last Admin: 03/20/23 20:40 Dose: 80 mg Carvedilol (Carvedilol 3.125 Mg Tablet) 3.125 mg PO BID [facility]; Protocol Last Admin: 03/20/23 20:40 Dose: 3.125 mg Cyanocobalamin (Cyanocobalamin (Vitamin B-12) 1,000 Mcg/Ml Vial) 1,000 mcg IM Q7D [facility] Stop: 04/08/23 08:01 Last Admin: 03/18/23 11:18 Dose: 1,000 mcg Isosorbide Mononitrate (Isosorbide Mononitrate 60 Mg Tab.Er.24h) 60 mg PO DAILY [facility]; Protocol Last Admin: 03/20/23 09:07 Dose: Not Given Loperamide HCl (Loperamide Hcl 2 Mg Capsule) 4 mg PO Q6H PRN PRN Reason: Diarrhea Last Admin: 03/17/23 10:37 Dose: 4 mg Losartan Potassium (Losartan Potassium 50 Mg Tablet) 100 mg PO BEDTIME [facility]; Protocol Last Admin: 03/20/23 20:40 Dose: 100 mg Magnesium Hydroxide (Milk Of Magnesia 30 Ml Oral.Susp) 30 ml PO DAILY PRN PRN Reason: Constipation Metformin HCl (Metformin Hcl 500 Mg Tablet) 500 mg PO BIDWM [facility] Last Admin: 03/20/23 17:08 Dose: 500 mg Mirtazapine (Mirtazapine 7.5 Mg Tablet) 7.5 mg PO BEDTIME [facility] Last Admin: 03/20/23 20:40 Dose: 7.5 mg Allergies Allergies Allergy/AdvReac Type Severity Reaction Status Date / Time No Known Allergies Allergy Verified 03/14/23 10:21 Assessment & Plan Assessment & Plan (1) Major neurocognitive disorder due to vascular disease, without behavioral disturbance, severe: Status: Acute Code(s): F01.C0 - Vascular dementia, severe, without behavioral disturbance, psychotic disturbance, mood disturbance, and anxiety (2) Major depressive disorder: Status: Acute Code(s): F32.9 - Major depressive disorder, single episode, unspecified Plan Mr. Larkin is a 77 year-old male who was brought by to [facility] [place] [facility] as pt has been presenting as more anxious alternating between over sleeping to not sleeping at night and then sleeping during the day, not eating as much. Pt recently admitted at [facility]- had medical work up that included head CT which showed atrophy and microvascular changes but no acute findings, cbc with no signs of infection, elevated BUN, Cr, given IV fluids. PLAN 03/17- decrease metformin dose from 1000mg po BID to 500mg po BID given that creatinine clearance is less than 60. B12 is in lower end 217-> will supplement with cyonocobalamine 1000mgc IM qweekly to assess effects on mood/cognition. Increase remeron 15mg po qhs. hold on abilify as had reported side effect although unclear at this point. Pending MOCA and ACL, I do suspect pt may have underlying vascular dementia. 03/18 pt continues to present as very flat and not engaging in much interaction, poverty of thought, not functioning as he was. I do suspect this is s/s to dementing process with mood changes and withdrawal 03/19 continue tx. 03/20 continue tx. may consider starting exelon. Reason for continued inpatient stay Substantial Risk for: inability to function Time Spent With Patient Time: Total time managing care of this patient today ____ minutes.
[2023-03-21] MEDS: Isosorbide Mononitrate 60 MG TAB.ER.24H PO (08:50)
[2023-03-21] MEDS: Rivastigmine Tartrate 1.5 MG CAPSULE PO ×2 (08:51→20:02)
[2023-03-21] MEDS: carvediloL 3.125 MG TABLET PO ×2 (08:51→20:03)
[2023-03-21] MEDS: metFORMIN HCl 500 MG TABLET PO ×2 (08:51→17:13)
[2023-03-21] MEDS: Aspirin 81 MG TAB.CHEW PO (08:51)
[2023-03-21] MEDS: amLODIPine Besylate 10 MG TABLET PO (08:51)
[2023-03-21 08:56] VITALS: BP 119/57; PULSE 79; RESP 18; TEMP 35.8; O2SAT 100
--- NOTE | 2023-03-21 10:36 | P.PNPSI_ITS ---
Subjective Subjective Date of Service: 03/21/23 Reason For Visit: Depression Subjective Notes: Conditional Voluntary Interim History: Pt with brighter affect today. Seen smiling more receptive to talk with this blurb writer. He denies any symptoms of depression, he reports eating better. Some insight that he is doing better than when he came but limited. No VH/AH. Per nursing, pt has been sleeping and eating well. No combative behaviors. Pt was started on exelon, will do low dose risperidone for underlying suspiciousness. Medication Compliance: Yes Review of Systems Constitutional: Reports no additional constitutional complaints, Denies chills, Denies fever(s) and Denies night sweats Eyes: Reports no additional eye complaints, Denies blurry vision, Denies change in vision, Denies diplopia, Denies eye discharge, Denies loss of vision and Denies eye pain Denies dizziness Cardiovascular: Reports no additional cardiovascular complaints, Denies chest pain, Denies lightheadedness, Denies Loss of Consciousness and Denies dyspnea Respiratory: Reports no additional respiratory complaints and Denies dyspnea Gastrointestinal: Reports no additional gastrointestinal complaints, Denies abdominal pain, Denies melena, Denies hematochezia, Denies change in bowel habits and Denies change in stool character Genitourinary: Reports no additional male genitourinary complaints, Denies hematuria, Denies oliguria, Denies difficulty urinating, Denies dysuria, Denies urinary frequency, Denies urinary hesitancy, Denies urinary incontinence and Denies urinary urgency Musculoskeletal: Reports no additional musculoskeletal complaints, Denies numbness and Denies tingling Denies confusion, Denies dizziness, Denies loss of vision, Denies memory loss, Denies numbness and Denies tingling Psychiatric: Reports abnormal sleep pattern, Reports anxiety, Denies confusion, Reports depression, Denies memory loss, Denies homicidal ideation and Denies suicidal ideation Endocrine: Reports no additional endocrine complaints Hematologic/Lymphatic: Reports no additional hematologic/lymphatic complaints Allergic/Immunologic: Reports no additional allergic/immunologic complaints Mental Status Exam Mental Status Exam Narrative: Appearance: wearing hospital gown, fair hygiene, in NAD behavior: not wanting to prolong conversation, superficially cooperative Psychomotor: some slight retardation Speech: clear, regular rate/rhythm/volume, spontaneous TP: mostly linear TC: no overt psychosis, feeling tired Mood: tired Affect: congruent, constricted SI: denies HI: denies VH/AH: none Delusions: none Insight/judgment: poor x 2. Memory/cog: alert, oriented x 3. pending moca. do suspect underlying cognitive impairment. Diagnostics Vital Signs (24Hr): Vital Signs - 24 hr 03/20/23 18:00 03/21/23 08:56 Temperature 97.1 F 96.5 F L Pulse Rate 85 79 Respiratory Rate 18 18 Blood Pressure 125/79 119/57 L Pulse Oximetry 98 100 Oxygen Delivery Method Room Air Room Air BMI result Body Mass Index 23.7 Labs 03/14/23 11:49 03/16/23 07:37 Labs: Laboratory Results - last 48 hr 03/16/23 07:37 Triglycerides 96 LDL Cholesterol, Calc 28 Medications Medications Current Medications Acetaminophen (Acetaminophen 325 Mg Tablet) 650 mg PO Q6H PRN PRN Reason: Headache/Pain Mild Scale (1-3) Last Admin: 03/19/23 15:51 Dose: 650 mg Al Hydroxide/Mg Hydroxide (Magnesium Hydrox/Alum Hydrox 30 Ml Oral.Susp) 30 ml PO Q6H PRN PRN Reason: Heartburn/Nausea Last Admin: 03/17/23 13:20 Dose: 30 ml Amlodipine Besylate (Amlodipine Besylate 10 Mg Tablet) 10 mg PO DAILY [facility]; Protocol Last Admin: 03/21/23 08:51 Dose: 10 mg Aspirin (Aspirin 81 Mg Tab.Chew) 81 mg PO DAILY [facility] Last Admin: 03/21/23 08:51 Dose: 81 mg Atorvastatin Calcium (Atorvastatin Calcium 80 Mg Tablet) 80 mg PO BEDTIME [facility] Last Admin: 03/20/23 20:40 Dose: 80 mg Carvedilol (Carvedilol 3.125 Mg Tablet) 3.125 mg PO BID [facility]; Protocol Last Admin: 03/21/23 08:51 Dose: 3.125 mg Cyanocobalamin (Cyanocobalamin (Vitamin B-12) 1,000 Mcg/Ml Vial) 1,000 mcg IM Q7D [facility] Stop: 04/08/23 08:01 Last Admin: 03/18/23 11:18 Dose: 1,000 mcg Isosorbide Mononitrate (Isosorbide Mononitrate 60 Mg Tab.Er.24h) 60 mg PO DAILY [facility]; Protocol Last Admin: 03/21/23 08:50 Dose: 60 mg Loperamide HCl (Loperamide Hcl 2 Mg Capsule) 4 mg PO Q6H PRN PRN Reason: Diarrhea Last Admin: 03/17/23 10:37 Dose: 4 mg Losartan Potassium (Losartan Potassium 50 Mg Tablet) 100 mg PO BEDTIME [facility]; Pro tocol Last Admin: 03/20/23 20:40 Dose: 100 mg Magnesium Hydroxide (Milk Of Magnesia 30 Ml Oral.Susp) 30 ml PO DAILY PRN PRN Reason: Constipation Metformin HCl (Metformin Hcl 500 Mg Tablet) 500 mg PO BIDWM [facility] Last Admin: 03/21/23 08:51 Dose: 500 mg Mirtazapine (Mirtazapine 7.5 Mg Tablet) 7.5 mg PO BEDTIME [facility] Last Admin: 03/20/23 20:40 Dose: 7.5 mg Rivastigmine Tartrate (Rivastigmine Tartrate 1.5 Mg Capsule) 1.5 mg PO BID [facility] Last Admin: 03/21/23 08:51 Dose: 1.5 mg Allergies Allergies Allergy/AdvReac Type Severity Reaction Status Date / Time No Known Allergies Allergy Verified 03/14/23 10:21 Assessment & Plan Assessment & Plan (1) Major neurocognitive disorder due to vascular disease, without behavioral disturbance, severe: Status: Acute Code(s): F01.C0 - Vascular dementia, severe, without behavioral disturbance, psychotic disturbance, mood disturbance, and anxiety Plan Mr. Larkin is a 77 year-old male who was brought by to [facility] [place] [facility] as pt has been presenting as more anxious alternating between over sleeping to not sleeping at night and then sleeping during the day, not eating as much. Pt recently admitted at [facility]- had medical work up that included head CT which showed atrophy and microvascular changes but no acute findings, cbc with no signs of infection, elevated BUN, Cr, given IV fluids. PLAN 03/17- decrease metformin dose from 1000mg po BID to 500mg po BID given that creatinine clearance is less than 60. B12 is in lower end 217-> will supplement with cyonocobalamine 1000mgc IM qweekly to assess effects on mood/cognition. Increase remeron 15mg po qhs. hold on abilify as had reported side effect although unclear at this point. Pending MOCA and ACL, I do suspect pt may have underlying vascular dementia. /2 pt continues to present as very flat and not engaging in much interaction, poverty of thought, not functioning as he was. I do suspect this is s/s to dementing process with mood changes and withdrawal 03/19 continue tx. 03/20 continue tx. may consider starting exelon. 03/21 continue execelon 1.5mg po BID, low dose risperidone 0.5mg po BID. Reason for continued inpatient stay Substantial Risk for: inability to function Time Spent With Patient Time: Total time managing care of this patient today ____ minutes.
[2023-03-21 18:00] VITALS: BP 127/62; PULSE 80; RESP 18; TEMP 36.6; O2SAT 98
[2023-03-21] MEDS: Losartan Potassium 50 MG TABLET 100 MG PO (20:03)
[2023-03-21] MEDS: Atorvastatin Calcium 80 MG TABLET PO (20:03)
[2023-03-21] MEDS: Mirtazapine 7.5 MG TABLET PO (20:03)
[2023-03-22 07:58] VITALS: BP 105/55; PULSE 69; RESP 16; TEMP 36.1; O2SAT 100
[2023-03-22] MEDS: risperiDONE 0.5 MG TABLET PO ×2 (08:27→21:16)
[2023-03-22] MEDS: carvediloL 3.125 MG TABLET PO ×2 (08:27→21:11)
[2023-03-22] MEDS: metFORMIN HCl 500 MG TABLET PO ×2 (08:27→16:41)
[2023-03-22] MEDS: Isosorbide Mononitrate 60 MG TAB.ER.24H PO (08:28)
[2023-03-22] MEDS: amLODIPine Besylate 10 MG TABLET PO (08:28)
[2023-03-22] MEDS: Aspirin 81 MG TAB.CHEW PO (08:28)
[2023-03-22] MEDS: Rivastigmine Tartrate 1.5 MG CAPSULE PO ×2 (08:29→21:08)
[2023-03-22 18:00] VITALS: BP 128/60; PULSE 77; RESP 20; TEMP 36.7
--- NOTE | 2023-03-22 19:18 | HO.PSYCHPN ---
Subjective Subjective Date of Service: 03/22/23 Reason For Visit: Depression Medical Problems Affecting Mental Status: No Interim History: Overall reports things are going well, looking forward to visit later. Denied depression, SI, HI, psychosis. Looking forward to discharge after weekend. Medication Compliance: Yes Side effects from medications: No Attending Groups: Yes Review of Systems Acute medical concerns: No Review of Systems Review of Systems Yes all other systems are reviewed and are negative Mental Status Exam Mental Status Exam Narrative: Appearance: wearing hospital gown, fair hygiene, in NAD behavior: not wanting to prolong conversation, cooperative Psychomotor: none Speech: clear, regular rate/rhythm/volume, spontaneous TP: mostly linear TC: no overt psychosis, feeling tired Mood: good Affect: congruent, constricted SI: denies HI: denies VH/AH: none Delusions: none Insight/judgment: poor x 2. Memory/cog: alert, oriented x 3. pending moca.t. Diagnostics Vital Signs (24Hr): Vital Signs - 24 hr 03/22/23 07:58 Temperature 97.0 F Pulse Rate 69 Respiratory Rate 16 Blood Pressure 105/55 L Pulse Oximetry 100 Oxygen Delivery Method Room Air BMI result Body Mass Index 23.7 Labs 03/14/23 11:49 03/16/23 07:37 Medications Medications Current Medications Acetaminophen (Acetaminophen 325 Mg Tablet) 650 mg PO Q6H PRN PRN Reason: Headache/Pain Mild Scale (1-3) Last Admin: 03/19/23 15:51 Dose: 650 mg Al Hydroxide/Mg Hydroxide (Magnesium Hydrox/Alum Hydrox 30 Ml Oral.Susp) 30 ml PO Q6H PRN PRN Reason: Heartburn/Nausea Last Admin: 03/17/23 13:20 Dose: 30 ml Amlodipine Besylate (Amlodipine Besylate 10 Mg Tablet) 10 mg PO DAILY [facility]; Protocol Last Admin: 03/22/23 08:28 Dose: 10 mg Aspirin (Aspirin 81 Mg Tab.Chew) 81 mg PO DAILY [facility] Last Admin: 03/22/23 08:28 Dose: 81 mg Atorvastatin Calcium (Atorvastatin Calcium 80 Mg Tablet) 80 mg PO BEDTIME [facility] Last Admin: 03/21/23 20:03 Dose: 80 mg Carvedilol (Carvedilol 3.125 Mg Tablet) 3.125 mg PO BID [facility]; Protocol Last Admin: 03/22/23 08:27 Dose: 3.125 mg Cyanocobalamin (Cyanocobalamin (Vitamin B-12) 1,000 Mcg/Ml Vial) 1,000 mcg IM Q7D [facility] Stop: 04/08/23 08:01 Last Admin: 03/18/23 11:18 Dose: 1,000 mcg Isosorbide Mononitrate (Isosorbide Mononitrate 60 Mg Tab.Er.24h) 60 mg PO DAILY [facility]; Protocol Last Admin: 03/22/23 08:28 Dose: 60 mg Loperamide HCl (Loperamide Hcl 2 Mg Capsule) 4 mg PO Q6H PRN PRN Reason: Diarrhea Last Admin: 03/17/23 10:37 Dose: 4 mg Losartan Potassium (Losartan Potassium 50 Mg Tablet) 100 mg PO BEDTIME [facility]; Protocol Last Admin: 03/21/23 20:03 Dose: 100 mg Magnesium Hydroxide (Milk Of Magnesia 30 Ml Oral.Susp) 30 ml PO DAILY PRN PRN Reason: Constipation Metformin HCl (Metformin Hcl 500 Mg Tablet) 500 mg PO BIDWM [facility] Last Admin: 03/22/23 16:41 Dose: 500 mg Mirtazapine (Mirtazapine 7.5 Mg Tablet) 7.5 mg PO BEDTIME [facility] Last Admin: 03/21/23 20:03 Dose: 7.5 mg Risperidone (Risperidone 0.5 Mg Tablet) 0.5 mg PO BID [facility] Last Admin: 03/22/23 08:27 Dose: 0.5 mg Rivastigmine Tartrate (Rivastigmine Tartrate 1.5 Mg Capsule) 1.5 mg PO BID [facility] Last Admin: 03/22/23 08:29 Dose: 1.5 mg Allergies Allergies Allergy/AdvReac Type Severity Reaction Status Date / Time No Known Allergies Allergy Verified 03/14/23 10:21 Assessment & Plan Assessment & Plan (1) Major neurocognitive disorder due to vascular disease, without behavioral disturbance, severe: Status: Acute Code(s): F01.C0 - Vascular dementia, severe, without behavioral disturbance, psychotic disturbance, mood disturbance, and anxiety Plan Mr. Larkin is a 77 year-old male who was brought by to [facility] as pt has been presenting as more anxious alternating between over sleeping to not sleeping at night and then sleeping during the day, not eating as much. Pt recently admitted at [facility]- had medical work up that included head CT which showed atrophy and microvascular changes but no acute findings, cbc with no signs of infection, elevated BUN, Cr, given IV fluids. PLAN 03/17- decrease metformin dose from 1000mg po BID to 500mg po BID given that creatinine clearance is less than 60. B12 is in lower end 217-> will supplement with cyonocobalamine 1000mgc IM qweekly to assess effects on mood/cognition. Increase remeron 15mg po qhs. hold on abilify as had reported side effect although unclear at this point. Pending MOCA and ACL, I do suspect pt may have underlying vascular dementia. 03/18 pt continues to present as very flat and not engaging in much interaction, poverty of thought, not functioning as he was. I do suspect this is s/s to dementing process with mood changes and withdrawal 03/19 continue tx. 03/20 continue tx. may consider starting exelon. 03/21 continue execelon 1.5mg po BID, low dose risperidone 0.5mg po BID. 03/22: no changes to plan Reason for continued inpatient stay Substantial Risk for: inability to function and rapid decompensation Time Spent With Patient Time: Total time managing care of this patient today ____ minutes.
[2023-03-22] MEDS: Mirtazapine 7.5 MG TABLET PO (21:09)
[2023-03-22] MEDS: Atorvastatin Calcium 80 MG TABLET PO (21:13)
[2023-03-22] MEDS: Losartan Potassium 50 MG TABLET 100 MG PO (21:13)
[2023-03-23 06:38] LABS: Creatinine Clr Calc Pharmacy 70.8; Estimated Glomerular Filt Rate > 60
[2023-03-23 08:20] VITALS: BP 113/59; PULSE 72; RESP 16; TEMP 36.6; O2SAT 98
[2023-03-23] MEDS: Rivastigmine Tartrate 1.5 MG CAPSULE PO ×2 (08:50→20:55)
[2023-03-23] MEDS: amLODIPine Besylate 10 MG TABLET PO (08:50)
[2023-03-23] MEDS: risperiDONE 0.5 MG TABLET PO ×2 (08:50→20:54)
[2023-03-23] MEDS: Aspirin 81 MG TAB.CHEW PO (08:50)
[2023-03-23] MEDS: metFORMIN HCl 500 MG TABLET PO ×2 (08:51→16:24)
[2023-03-23] MEDS: carvediloL 3.125 MG TABLET PO ×2 (08:51→20:53)
[2023-03-23] MEDS: Isosorbide Mononitrate 60 MG TAB.ER.24H PO (08:51)
--- NOTE | 2023-03-23 12:42 | HO.PSYCHPN ---
Subjective Subjective Date of Service: 03/23/23 Reason For Visit: Depression Interim History: Overall reports things are going well and declined to participate in full interview I prefer not to today . No concerns as per nursing Medication Compliance: Yes Side effects from medications: No Attending Groups: Yes Review of Systems Acute medical concerns: No Review of Systems Review of Systems unremarkable Mental Status Exam Mental Status Exam Narrative: Appearance: regular clothing, fair hygiene, in NAD behavior: not wanting to prolong conversation, cooperative Psychomotor: none Speech: clear, regular rate/rhythm/volume, spontaneous TP: mostly linear TC: no overt psychosis, feeling tired Mood: ok Affect: congruent, constricted SI: none evident HI: none evident VH/AH: none evident Delusions: none evident Insight/judgment: poor x 2. Memory/cog: alert, oriented x 3. pending moca. Diagnostics Vital Signs (24Hr): Vital Signs - 24 hr 03/22/23 18:00 03/23/23 08:20 Temperature 98.1 F 97.9 F Pulse Rate 77 72 Respiratory Rate 20 16 Blood Pressure 128/60 113/59 L Pulse Oximetry 98 Oxygen Delivery Method Room Air Room Air BMI result Body Mass Index 23.7 Labs 03/14/23 11:49 03/23/23 06:10 Labs: Laboratory Results - last 48 hr 03/23/23 06:10 Creatinine 0.93 Estim Creat Clear Calc 70.8 Estimated GFR > 60 Medications Medications Current Medications Acetaminophen (Acetaminophen 325 Mg Tablet) 650 mg PO Q6H PRN PRN Reason: Headache/Pain Mild Scale (1-3) Last Admin: 03/19/23 15:51 Dose: 650 mg Al Hydroxide/Mg Hydroxide (Magnesium Hydrox/Alum Hydrox 30 Ml Oral.Susp) 30 ml PO Q6H PRN PRN Reason: Heartburn/Nausea Last Admin: 03/17/23 13:20 Dose: 30 ml Amlodipine Besylate (Amlodipine Besylate 10 Mg Tablet) 10 mg PO DAILY [facility]; Protocol Last Admin: 03/23/23 08:50 Dose: 10 mg Aspirin (Aspirin 81 Mg Tab.Chew) 81 mg PO DAILY [facility] Last Admin: 03/23/23 08:50 Dose: 81 mg Atorvastatin Calcium (Atorvastatin Calcium 80 Mg Tablet) 80 mg PO BEDTIME [facility] Last Admin: 03/22/23 21:13 Dose: 80 mg Carvedilol (Carvedilol 3.125 Mg Tablet) 3.125 mg PO BID [facility]; Protocol Last Admin: 03/23/23 08:51 Dose: 3.125 mg Cyanocobalamin (Cyanocobalamin (Vitamin B-12) 1,000 Mcg/Ml Vial) 1,000 mcg IM Q7D [facility] Stop: 04/08/23 08:01 Last Admin: 03/18/23 11:18 Dose: 1,000 mcg Isosorbide Mononitrate (Isosorbide Mononitrate 60 Mg Tab.Er.24h) 60 mg PO DAILY [facility]; Protocol Last Admin: 03/23/23 08:51 Dose: 60 mg Loperamide HCl (Loperamide Hcl 2 Mg Capsule) 4 mg PO Q6H PRN PRN Reason: Diarrhea Last Admin: 03/17/23 10:37 Dose: 4 mg Losartan Potassium (Losartan Potassium 50 Mg Tablet) 100 mg PO BEDTIME [facility]; Protocol Last Admin: 03/22/23 21:13 Dose: 100 mg Magnesium Hydroxide (Milk Of Magnesia 30 Ml Oral.Susp) 30 ml PO DAILY PRN PRN Reason: Constipation Metformin HCl (Metformin Hcl 500 Mg Tablet) 500 mg PO BIDWM [facility] Last Admin: 03/23/23 08:51 Dose: 500 mg Mirtazapine (Mirtazapine 7.5 Mg Tablet) 7.5 mg PO BEDTIME [facility] Last Admin: 03/22/23 21:09 Dose: 7.5 mg Risperidone (Risperidone 0.5 Mg Tablet) 0.5 mg PO BID [facility] Last Admin: 03/23/23 08:50 Dose: 0.5 mg Rivastigmine Tartrate (Rivastigmine Tartrate 1.5 Mg Capsule) 1.5 mg PO BID [facility] Last Admin: 03/23/23 08:50 Dose: 1.5 mg Allergies Allergies Allergy/AdvReac Type Severity Reaction Status Date / Time No Known Allergies Allergy Verified 03/14/23 10:21 Assessment & Plan Assessment & Plan (1) Major neurocognitive disorder due to vascular disease, without behavioral disturbance, severe: Status: Acute Code(s): F01.C0 - Vascular dementia, severe, without behavioral disturbance, psychotic disturbance, mood disturbance, and anxiety Plan Mr. Larkin is a 77 year-old male who was brought by to [facility] as pt has been presenting as more anxious alternating between over sleeping to not sleeping at night and then sleeping during the day, not eating as much. Pt recently admitted at [facility]- had medical work up that included head CT which showed atrophy and microvascular changes but no acute findings, cbc with no signs of infection, elevated BUN, Cr, given IV fluids. PLAN 03/17- decrease metformin dose from 1000mg po BID to 500mg po BID given that creatinine clearance is less than 60. B12 is in lower end 217-> will supplement with cyonocobalamine 1000mgc IM qweekly to assess effects on mood/cognition. Increase remeron 15mg po qhs. hold on abilify as had reported side effect although unclear at this point. Pending MOCA and ACL, I do suspect pt may have underlying vascular dementia. 03/18 pt continues to present as very flat and not engaging in much interaction, poverty of thought, not functioning as he was. I do suspect this is s/s to dementing process with mood changes and withdrawal 03/19 continue tx. 03/20 continue tx. may consider starting exelon. 03/21 continue execelon 1.5mg po BID, low dose risperidone 0.5mg po BID. 03/23: no changes to plan Reason for continued inpatient stay Substantial Risk for: rapid decompensation Time Spent With Patient Time: Total time managing care of this patient today ____ minutes.
[2023-03-23 18:00] VITALS: BP 119/58; PULSE 80; RESP 18; TEMP 36.5; O2SAT 97
[2023-03-23] MEDS: Atorvastatin Calcium 80 MG TABLET PO (20:52)
[2023-03-23] MEDS: Mirtazapine 7.5 MG TABLET PO (20:54)
[2023-03-23] MEDS: Losartan Potassium 50 MG TABLET 100 MG PO (20:54)
[2023-03-24 08:10] VITALS: BP 115/56; PULSE 80; RESP 18; TEMP 36.1; O2SAT 99
[2023-03-24] MEDS: carvediloL 3.125 MG TABLET PO ×2 (08:42→20:28)
[2023-03-24] MEDS: Aspirin 81 MG TAB.CHEW PO (08:42)
[2023-03-24] MEDS: amLODIPine Besylate 10 MG TABLET PO (08:42)
[2023-03-24] MEDS: risperiDONE 0.5 MG TABLET PO ×2 (08:42→20:28)
[2023-03-24] MEDS: metFORMIN HCl 500 MG TABLET PO ×2 (08:42→16:39)
[2023-03-24] MEDS: Rivastigmine Tartrate 1.5 MG CAPSULE PO ×2 (08:43→20:28)
[2023-03-24] MEDS: Isosorbide Mononitrate 60 MG TAB.ER.24H PO (08:43)
[2023-03-24] MEDS: Milk of Magnesia 30 ML ORAL.SUSP PO (11:23)
[2023-03-24 18:00] VITALS: BP 120/57; PULSE 96; RESP 18; TEMP 36.3; O2SAT 97
[2023-03-24] MEDS: Losartan Potassium 50 MG TABLET 100 MG PO (20:28)
[2023-03-24] MEDS: Mirtazapine 7.5 MG TABLET PO (20:28)
[2023-03-24] MEDS: Atorvastatin Calcium 80 MG TABLET PO (20:28)
--- NOTE | 2023-03-24 21:29 | P.PNPSI_ITS ---
Subjective Subjective Date of Service: 03/24/23 Reason For Visit: Depression Subjective Notes: Conditional Voluntary Interim History: Pt reports mood is better and feels more energy. He reports sleeping and eating well. He has been more social with peers. He denies SI/HI. No psychosis. Pt reports he is looking forward to return home tomorrow. Per nursing, pt slept through the night. No behavioral concerns. Review of Systems Review of Systems unremarkable Yes all other systems are reviewed and are negative Constitutional: Reports no additional constitutional complaints, Denies chills, Denies fever(s) and Denies night sweats Eyes: Reports no additional eye complaints, Denies blurry vision, Denies change in vision, Denies diplopia, Denies eye discharge, Denies loss of vision and Denies eye pain Denies dizziness Cardiovascular: Reports no additional cardiovascular complaints, Denies chest pain, Denies lightheadedness, Denies Loss of Consciousness and Denies dyspnea Respiratory: Reports no additional respiratory complaints and Denies dyspnea Gastrointestinal: Reports no additional gastrointestinal complaints, Denies abdominal pain, Denies melena, Denies hematochezia, Denies change in bowel habits and Denies change in stool character Genitourinary: Reports no additional male genitourinary complaints, Denies hematuria, Denies oliguria, Denies difficulty urinating, Denies dysuria, Denies urinary frequency, Denies urinary hesitancy, Denies urinary incontinence and Denies urinary urgency Musculoskeletal: Reports no additional musculoskeletal complaints, Denies numbness and Denies tingling Denies confusion, Denies dizziness, Denies loss of vision, Denies memory loss, Denies numbness and Denies tingling Psychiatric: Reports abnormal sleep pattern, Reports anxiety, Denies confusion, Reports depression, Denies memory loss, Denies homicidal ideation and Denies suicidal ideation Endocrine: Reports no additional endocrine complaints Hematologic/Lymphatic: Reports no additional hematologic/lymphatic complaints Allergic/Immunologic: Reports no additional allergic/immunologic complaints Mental Status Exam Mental Status Exam Narrative: Appearance: regular clothing, fair hygiene, in NAD behavior: not wanting to prolong conversation, cooperative Psychomotor: none Speech: clear, regular rate/rhythm/volume, spontaneous TP: mostly linear TC: no overt psychosis, feeling tired Mood: ok Affect: congruent, constricted SI: none evident HI: none evident VH/AH: none evident Delusions: none evident Insight/judgment: poor x 2. Memory/cog: alert, oriented x 3. pending moca. Diagnostics Vital Signs (24Hr): Vital Signs - 24 hr 03/24/23 08:10 03/24/23 18:00 Temperature 96.9 F 97.4 F Pulse Rate 80 96 Respiratory Rate 18 18 Blood Pressure 115/56 L 120/57 L Pulse Oximetry 99 97 Oxygen Delivery Method Room Air Room Air BMI result Body Mass Index 23.7 Labs 03/14/23 11:49 03/23/23 06:10 Labs: Laboratory Results - last 48 hr 03/23/23 06:10 Creatinine 0.93 Estim Creat Clear Calc 70.8 Estimated GFR > 60 Medications Medications Current Medications Acetaminophen (Acetaminophen 325 Mg Tablet) 650 mg PO Q6H PRN PRN Reason: Headache/Pain Mild Scale (1-3) Last Admin: 03/19/23 15:51 Dose: 650 mg Al Hydroxide/Mg Hydroxide (Magnesium Hydrox/Alum Hydrox 30 Ml Oral.Susp) 30 ml PO Q6H PRN PRN Reason: Heartburn/Nausea Last Admin: 03/17/23 13:20 Dose: 30 ml Amlodipine Besylate (Amlodipine Besylate 10 Mg Tablet) 10 mg PO DAILY [facility]; Protocol Last Admin: 03/24/23 08:42 Dose: 10 mg Aspirin (Aspirin 81 Mg Tab.Chew) 81 mg PO DAILY [facility] Last Admin: 03/24/23 08:42 Dose: 81 mg Atorvastatin Calcium (Atorvastatin Calcium 80 Mg Tablet) 80 mg PO BEDTIME [facility] Last Admin: 03/24/23 20:28 Dose: 80 mg Carvedilol (Carvedilol 3.125 Mg Tablet) 3.125 mg PO BID [facility]; Protocol Last Admin: 03/24/23 20:28 Dose: 3.125 mg Cyanocobalamin (Cyanocobalamin (Vitamin B-12) 1,000 Mcg/Ml Vial) 1,000 mcg IM Q7D [facility] Stop: 04/08/23 08:01 Last Admin: 03/18/23 11:18 Dose: 1,000 mcg Isosorbide Mononitrate (Isosorbide Mononitrate 60 Mg Tab.Er.24h) 60 mg PO DAILY [facility]; Protocol Last Admin: 03/24/23 08:43 Dose: 60 mg Loperamide HCl (Loperamide Hcl 2 Mg Capsule) 4 mg PO Q6H PRN PRN Reason: Diarrhea Last Admin: 03/17/23 10:37 Dose: 4 mg Losartan Potassium (Losartan Potassium 50 Mg Tablet) 100 mg PO BEDTIME [facility]; Protocol Last Admin: 03/24/23 20:28 Dose: 100 mg Magnesium Hydroxide (Milk Of Magnesia 30 Ml Oral.Susp) 30 ml PO DAILY PRN PRN Reason: Constipation Last Admin: 03/24/23 11:23 Dose: 30 ml Metformin HCl (Metformin Hcl 500 Mg Tablet) 500 mg PO BIDWM [facility] Last Admin: 03/24/23 16:39 Dose: 500 mg Mirtazapine (Mirtazapine 7.5 Mg Tablet) 7.5 mg PO BEDTIME [facility] Last Admin: 03/24/23 20:28 Dose: 7.5 mg Risperidone (Risperidone 0.5 Mg Tablet) 0.5 mg PO BID [facility] Last Admin: 03/24/23 20:28 Dose: 0.5 mg Rivastigmine Tartrate (Rivastigmine Tartrate 1.5 Mg Capsule) 1.5 mg PO BID [facility] Last Admin: 03/24/23 20:28 Dose: 1.5 mg Allergies Allergies Allergy/AdvReac Type Severity Reaction Status Date / Time No Known Allergies Allergy Verified 03/14/23 10:21 Assessment & Plan Assessment & Plan (1) Major neurocognitive disorder due to vascular disease, without behavioral disturbance, severe: Status: Acute Code(s): F01.C0 - Vascular dementia, severe, without behavioral disturbance, psychotic disturbance, mood disturbance, and anxiety Plan Mr. Larkin is a 77 year-old male who was brought by to [facility] ED as pt has been presenting as more anxious alternating between over sleeping to not sleeping at night and then sleeping during the day, not eating as much. Pt recently admitted at [facility]- had medical work up that included head CT which showed atrophy and microvascular changes but no acute findings, cbc with no signs of infection, elevated BUN, Cr, given IV fluids. PLAN 03/17- decrease metformin dose from 1000mg po BID to 500mg po BID given that creatinine clearance is less than 60. B12 is in lower end 217-> will supplement with cyonocobalamine 1000mgc IM qweekly to assess effects on mood/cognition. Increase remeron 15mg po qhs. hold on abilify as had reported side effect although unclear at this point. Pending MOCA and ACL, I do suspect pt may have underlying vascular dementia. 03/18 pt continues to present as very flat and not engaging in much interaction, poverty of thought, not functioning as he was. I do suspect this is s/s to dementing process with mood changes and withdrawal 03/19 continue tx. 03/20 continue tx. may consider starting exelon. 03/21 continue execelon 1.5mg po BID, low dose risperidone 0.5mg po BID. 03/23: no changes to plan 03/24 continue tx. d/c tomorrow. Reason for continued inpatient stay Substantial Risk for: stable for discharge Time Spent With Patient Time: Total time managing care of this patient today ____ minutes.
[2023-03-25 08:00] VITALS: BP 121/67; PULSE 79; RESP 18; TEMP 36.1; O2SAT 97
[2023-03-25] MEDS: risperiDONE 0.5 MG TABLET PO (08:22)
[2023-03-25] MEDS: Rivastigmine Tartrate 1.5 MG CAPSULE PO (08:22)
[2023-03-25] MEDS: carvediloL 3.125 MG TABLET PO (08:23)
[2023-03-25] MEDS: amLODIPine Besylate 10 MG TABLET PO (08:23)
[2023-03-25] MEDS: Aspirin 81 MG TAB.CHEW PO (08:23)
[2023-03-25] MEDS: Isosorbide Mononitrate 60 MG TAB.ER.24H PO (08:23)
[2023-03-25] MEDS: metFORMIN HCl 500 MG TABLET PO (08:23)
--- NOTE | 2023-03-25 08:55 | HO.PSYADMNOT ---
HPI Chief Complaint: Depression HPI Past Psychiatric History: pt denies any h/o mental health treatment or illness. no h/o SA, SIB. no h/o psych hosps. PCP recently tried him on ativan for sleep, which made him overly sedated. trazodone was tried next, which worked initially but then became less effective. abilify was tried next, which apparently also overly sedated pt. [facility] Family History: per : pt's mother had a nervous breakdown shortly after pt's father her and she spent the rest of her life at [facility]. per : one of pt's sisters was recently hospitalized for 4-5 days at [facility] due to a break down. per , sister was getting fixated on her bills, and feeling unsafe in her apartment building. 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 they have a daughter who lives locally and is involved/supportive. pt lives with his in their own home. pt was born in [place], raised in [place], [place]. good childhood, 2 sisters, father mom when he was 4 yo. after divorce, pt and sisters went to be raised by paternal aunt and grandmother; bio father was not much involved. went to [facility] [employer] and then [employer], got a BA in science. Trauma History: none elaborated Diagnostics Vital Signs (24Hr): Vital Signs - 24 hr 03/24/23 18:00 Temperature 97.4 F Pulse Rate 96 Respiratory Rate 18 Blood Pressure 120/57 L Pulse Oximetry 97 Oxygen Delivery Method Room Air BMI result Body Mass Index 23.7 Labs 03/14/23 11:49 03/23/23 06:10 Meds/Allergies Meds Home Medications Medication Instructions Recorded Confirmed Type amlodipine 10 mg tablet 10 mg PO DAILY 03/14/23 03/14/23 History aspirin 81 mg chewable tablet 81 mg PO DAILY 03/14/23 03/14/23 History atorvastatin 80 mg tablet 80 mg PO BEDTIME 03/14/23 03/14/23 History carvedilol 3.125 mg tablet 3.125 mg PO BID 03/14/23 03/14/23 History isosorbide mononitrate 60 mg 60 mg PO DAILY 03/14/23 03/14/23 History tablet,extended release 24 hr losartan 100 mg tablet 100 mg PO BEDTIME 03/14/23 03/14/23 History Allergies Allergies Allergy/AdvReac Type Severity Reaction Status Date / Time No Known Allergies Allergy Verified 03/14/23 10:21 Mental Status Exam Mental Status Exam Narrative: Appearance: regular clothing, fair hygiene, in NAD behavior: not wanting to prolong conversation, cooperative Psychomotor: none Speech: clear, regular rate/rhythm/volume, spontaneous TP: mostly linear TC: no overt psychosis, feeling tired Mood: ok Affect: congruent, constricted SI: none evident HI: none evident VH/AH: none evident Delusions: none evident Insight/judgment: poor x 2. Memory/cog: alert, oriented x 3. pending moca. Assessment & Plan Statement Statement: I have reviewed the history and physical and performed a pertinent examination on my patient. No changes have occurred unless specified. If the History and Physical was not performed prior to admission, the Hospitalist's service will be consulted for completing the admission physical. Time Spent With Patient Time: Total time managing care of this patient today ____ minutes.
--- NOTE | 2023-03-25 08:56 | P.DS_ITS ---
DS: Providers Provider Date of Service: 03/25/23 Date of admission: 03/15/23 11:02 Date of discharge: 03/25/23 Primary care physician: Durga Christianson MD DS: Diagnosis Discharge Diagnosis (1) Major neurocognitive disorder due to vascular disease, without behavioral disturbance, severe: Status: Acute DS: Medications Discharge Medications Home Medications: Home Medications Medication Instructions Recorded Confirmed amlodipine 10 mg tablet 10 mg PO DAILY 03/14/23 03/14/23 aspirin 81 mg chewable tablet 81 mg PO DAILY 03/14/23 03/14/23 atorvastatin 80 mg tablet 80 mg PO BEDTIME 03/14/23 03/14/23 carvedilol 3.125 mg tablet 3.125 mg PO BID 03/14/23 03/14/23 isosorbide mononitrate 60 mg 60 mg PO DAILY 03/14/23 03/14/23 tablet,extended release 24 hr losartan 100 mg tablet 100 mg PO BEDTIME 03/14/23 03/14/23 Previous Rx's Medication Instructions Recorded cyanocobalamin (vitamin B-12) 500 mcg (7.5 mL) PO DAILY #240 mL 03/25/23 1,000 mcg/15 mL oral liquid cyanocobalamin (vitamin B-12) 1,000 mcg IM Q7D #10 mL 03/25/23 1,000 mcg/mL injection solution metformin 500 mg tablet 500 mg PO BIDWM #60 tabs 03/25/23 mirtazapine 15 mg tablet 15 mg PO BEDTIME #30 tabs 03/25/23 risperidone 0.5 mg tablet 0.5 mg PO BID #60 tabs 03/25/23 rivastigmine tartrate 1.5 mg 1.5 mg PO BID #60 caps 03/25/23 capsule Mental Status Exam Mental Status Exam Narrative: Appearance: regular clothing, fair hygiene, in NAD behavior: not wanting to prolong conversation, cooperative Psychomotor: none Speech: clear, regular rate/rhythm/volume, spontaneous TP: mostly linear TC: no overt psychosis, feeling tired Mood: ok Affect: congruent, constricted SI: none evident HI: none evident VH/AH: none evident Delusions: none evident Insight/judgment: poor x 2. Memory/cog: alert, oriented x 3. pending moca. Data Data Completed and Pending Completed studies during hospitalization [Text1]: 03/16/23 03/23/23 07:37 06:10 Creatinine 0.93 Estim Creat Clear Calc 70.8 Estimated GFR > 60 Triglycerides 96 LDL Cholesterol, Calc 28 DS: Summary Hospital Course Hospital Course: HPI: Pt has been presenting with changes in mood in the past 3 months. Per , pt initially presented as not sleeping, very restless, to not wanting to go out because he thought he couldn't hear and was worried other will find out. Per , pt was watching window to make sure no one was coming to their house. No overt paranoia but some degree of suspiciousness. Pt also has been mostly in bed, not eating as much. He has apparently loss 20 Lbs in past 6 months. He denies suicidal ideation but it appears that he had reported to his PCP that he had suicidal ideation. No hx of suicide attempts. No prior psych hx. Today, pt mostly in bed. He reports episode of loose stool since yesterday. He did receive loperamide with good effect. He denies abdominal pain. No vomiting. Pt afebrile. Discussed with pt and that B12 on lower side- supplement with parentenal to see effects on mood and cognition. Also, based on his current creatinine clearance- dose of metformin should not exceed 1000mg/day. HOSPITAL COURSE On the unit, pt was admitted on a CV and placed on 15 minutes checks for safety. Pt initially was mostly in bed, avoiding conversations with staff. No overt delusional content reported but some degree of suspiciousness was present. Pt denied suicidal or homicidal ideation. He denied visual or auditory hallucinations and did not seem to be responding to internal stimuli. It was noted that B12 was low in 217 and although pt did not have macrocytic anemia, benefit of supplementation in terms of mood and energy and cognitive appeared to be greater. He was started on cyanocobalamine 1000mcg IM x 4 with plan to transition to oral supplementation. Work up for dementia was completed including cbc, cmp, b12, tsh. Head CT was completed at [facility] which showed microvascular changes and atrophy. ACL score was 4- showing moderate cognitive impairment. Cognitive pattern of impairment seems to be consistent with vascular type in that his orientation is grossly intact but recall, executive function seems impaired. Family meeting was held, information about dx including vascular dementia was given to family and pt.We discussed risks, benefits and alternative treatment options including starting remeron for mood/sleep. Low dose risperidone for suspiciousness/mood. he was also started on exelon to slow down progression cognitive decline. His affect gradually presented as much brighter. He was much less suspicious and interacted with peers and staff. He was sleeping better. HIs appetite increased. No aggression was seen towards self or others. He tolerated the medications well without side effect. Status at Discharge Cognitive/behavioral status at discharge: Pt with brighter, non labile affect. No SI/HI. No delusions noted. Pt sleeping and eating well. Underlying cognitive impairment with vascular pattern was noted. Pt appetite increase. His energy levels also appeared much better. No aggression towards self or others. Functional status at discharge: independent ambulation Overall status at discharge: patient is progressing back to baseline Time Spent with Patient Time attestation: Total time managing care of this patient today ____ minutes. Time spent: Greater than 30 minutes Discharge Plan Discharge Anticipated Discharge Date/Time: 03/25/23 08:45 Patient Disposition: Home, Self-Care Discharge Diagnosis: Major Neurocognitive disorder, vascular type Referrals: [facility] [employer] [facility] [Other] - 04/15/23 5:00 pm (Your first appointment is scheduled for Friday04/15/23 at 5PM at the [facility]. Address: [address] [place] [id number]. Please contact Flor directly if any changes need to be made for appointment. ) Durga Christianson MD [Primary Care Provider] - 1 Week Discharge Medications: New rivastigmine tartrate 1.5 mg Capsule 1.5 mg PO BID Qty: 60 0RF mirtazapine 15 mg tablet 15 mg PO BEDTIME Qty: 30 0RF metformin 500 mg Tablet 500 mg PO BIDWM Qty: 60 0RF cyanocobalamin (vitamin B-12) 1,000 mcg/mL Solution 1,000 mcg IM Q7D Qty: 10 0RF risperidone 0.5 mg Tablet 0.5 mg PO BID Qty: 60 0RF cyanocobalamin (vitamin B-12) 1,000 mcg/15 mL liquid 500 mcg PO DAILY Qty: 240 0RF Rx Instructions: after completing IM start on 04/15/2023 Continued atorvastatin 80 mg tablet 80 mg PO BEDTIME carvedilol 3.125 mg tablet 3.125 mg PO BID isosorbide mononitrate 60 mg tablet extended release 24 hr 60 mg PO DAILY amlodipine 10 mg tablet 10 mg PO DAILY losartan 100 mg tablet 100 mg PO BEDTIME aspirin 81 mg Tablet,Chewable 81 mg PO DAILY Discontinued metformin 1,000 mg tablet 1,000 mg PO BID Discharge Orders: Discharge Order (Routine); Ordered 03/25/23 Ordered By: Angie Louis Diet: Diabetic diet Activity on Discharge: As tolerated Stand Alone Forms: Patient Portal Discharge page Care Plan Goals: 1. Maintain mood 2. No SI/HI. 3. No psychosis/delusions Health Concerns: Follow up with PCP Plan of Treatment: Take medications as prescribed Go to nearest ED or call 911 in event of emergency Assessment: Pt with brighter affect, non labile. No signs of aggression towards self or others. Pt increase energy, improved mood. No SI/HI. No overt delusions or psychosis. More visible and eating better.
[2023-03-25] MEDS: Cyanocobalamin (Vitamin B-12) 1,000 MCG/ML VIAL 1000 MCG IM (10:24)
== END 2023-03-25 11:10 | disposition home or self-care (01) | DRG 881 ==
LOC: HO.ED 16:04 → HO.PGERI 03-15 11:07
PROVIDERS: Physician Assistant Medical; Social Worker; Admitting Provider Psychiatry & Neurology Psychiatry; Emergency Provider Emergency Medicine; PCP Internal Medicine; Visit Provider Psychiatry & Neurology Psychiatry
DX: F32.9 Major depressive disorder, single episode, unspecified (principal); G47.00 Insomnia, unspecified; F01.C0 Vascular dementia, severe, without behavioral disturbance, psychotic disturbance, mood disturbance, and anxiety; Z20.822 Contact with and (suspected) exposure to COVID-19; I25.2 Old myocardial infarction; Z87.891 Personal history of nicotine dependence; Z79.82 Long term (current) use of aspirin; Z79.84 Long term (current) use of oral hypoglycemic drugs; Z79.899 Other long term (current) drug therapy
CPT/HCPCS: 36415; 80053; 80061; 80307; 82565; 82607; 82746; 82947; 83036; 84439; 84443; 85025; 87635; 93005; 99285; S9485

== ENCOUNTER 2023-06-11 07:52 | Outpatient (REF) | payer MEDICARE, SELFPAY ==
[2023-06-11 13:00] LABS: MANUAL DIFF FLAG NO
[2023-06-11 13:49] LABS: Basophils Percent Auto 0.6 % (0-2); Eosinophils Absolute Auto 0.3 X10*3/uL (0.0-0.4); Eosinophils Percent Auto 4.1 % (0-4); Hematocrit 40.5 % (42.0-52.0); Hemoglobin 13.3 g/dl (14.0-18.0); Imm Gran Abs Auto 0.02 X10*3/uL (0.00-0.03); Imm Gran Pct Auto 0.3 % (0.0-0.4); Lymphocytes Absolute Auto 1.6 X10*3/uL (1.2-4.9); Mean Corpuscular HGB Conc 32.8 g/dl (31.0-36.0); Mean Corpuscular Hemoglobin 29.5 pg (27.0-33.0); Mean Corpuscular Volume 89.8 fL (80.0-98.0); Mean Platelet Volume 10.4 fL (9.4-12.4); Monocytes Absolute Auto 0.6 X10*3/uL (0.1-1.2); Monocytes Percent Auto 7.8 % (2-11); Neutrophils Absolute Auto 4.6 x10*3/uL (2.0-8.3); Neutrophils Percent Auto 65.2 % (45-73); Platelet Count 292 X10*3/uL (160-400); Red Blood Count 4.51 X10*6/uL (4.60-5.80); Red Cell Distribution Width 12.1 % (11.0-16.0); White Blood Count 7.1 X10*3/uL (4.8-10.8)
[2023-06-11 13:51] LABS: Estimated Average Glucose 126 mg/dL; Hemoglobin A1C 152.3203 umol/L
[2023-06-11 13:57] LABS: Alanine Aminotransferase 27 U/L (0-40); Alkaline Phosphatase 65 U/L (39-117); Anion Gap 9 (12-20); Aspartate Amino Transferase 20 U/L (5-37); Bilirubin Total 0.7 mg/dL (0.0-1.0); Blood Urea Nitrogen 14 mg/dL (9-16); Calcium 9.3 mg/dL (8.4-10.2); Carbon Dioxide 30 mmol/L (22-29); Chloride 105 mmol/L (96-108); Cholesterol 109 mg/dL; Estimated Glomerular Filt Rate > 60; Glucose Random 134 mg/dL (60-115); HDL Cholesterol 36 mg/dL; LDL Cholesterol Calculated 59 mg/dl; Potassium 4.2 mmol/L (3.3-5.1); Sodium 140 mmol/L (135-145); Total Protein 6.6 g/dL (6.5-8.0); Triglycerides 70 mg/dL
== END 2023-06-11 07:53 | disposition home or self-care (01) ==
LOC: HO.MANLDS 07:52
PROVIDERS: Visit Provider Internal Medicine
DX: E11.9 Type 2 diabetes mellitus without complications (principal); I10 Essential (primary) hypertension; Z12.5 Encounter for screening for malignant neoplasm of prostate
CPT/HCPCS: 36415; 80053; 80061; 83036; 84153; 85025

== ENCOUNTER 2023-10-27 07:52 | Outpatient (REF) | payer MEDICARE, SELFPAY ==
[2023-10-27 13:31] LABS: MANUAL DIFF FLAG NO
[2023-10-27 13:40] LABS: Basophils Percent Auto 0.5 % (0-2); Eosinophils Absolute Auto 0.2 X10*3/uL (0.0-0.4); Eosinophils Percent Auto 3.1 % (0-4); Hematocrit 47.7 % (42.0-52.0); Hemoglobin 15.3 g/dl (14.0-18.0); Imm Gran Abs Auto 0.02 X10*3/uL (0.00-0.03); Imm Gran Pct Auto 0.3 % (0.0-0.4); Lymphocytes Absolute Auto 1.8 X10*3/uL (1.2-4.9); Lymphocytes Percent Auto 27.1 % (20-40); Mean Corpuscular HGB Conc 32.1 g/dl (31.0-36.0); Mean Corpuscular Hemoglobin 28.9 pg (27.0-33.0); Mean Corpuscular Volume 90.2 fL (80.0-98.0); Mean Platelet Volume 10.7 fL (9.4-12.4); Monocytes Absolute Auto 0.5 X10*3/uL (0.1-1.2); Monocytes Percent Auto 6.9 % (2-11); Neutrophils Absolute Auto 4.1 x10*3/uL (2.0-8.3); Neutrophils Percent Auto 62.1 % (45-73); Platelet Count 260 X10*3/uL (160-400); Red Blood Count 5.29 X10*6/uL (4.60-5.80); Red Cell Distribution Width 12.9 % (11.0-16.0); White Blood Count 6.5 X10*3/uL (4.8-10.8)
[2023-10-27 13:59] LABS: Estimated Average Glucose 151 mg/dL; Hemoglobin A1C 205.2041 umol/L; Hemoglobin A1c % 6.9 % (<6.0)
[2023-10-27 14:07] LABS: Alanine Aminotransferase 26 U/L (0-40); Albumin Level 4.2 g/dL (3.5-5.0); Alkaline Phosphatase 74 U/L (39-117); Anion Gap 15 (12-20); Aspartate Amino Transferase 23 U/L (5-37); Bilirubin Total 0.7 mg/dL (0.0-1.0); Blood Urea Nitrogen 15 mg/dL (9-16); Calcium 9.3 mg/dL (8.4-10.2); Carbon Dioxide 24 mmol/L (22-29); Chloride 108 mmol/L (96-108); Cholesterol 115 mg/dL (<200); Estimated Glomerular Filt Rate > 60; Glucose Random 155 mg/dL (60-115); HDL Cholesterol 37 mg/dL (>40); LDL Cholesterol Calculated 65 mg/dL (<100); Sodium 143 mmol/L (135-145); Triglycerides 69 mg/dL (<150)
== END 2023-10-27 07:53 | disposition home or self-care (01) ==
LOC: HO.MANLDS 07:52
PROVIDERS: Visit Provider Internal Medicine
DX: E11.9 Type 2 diabetes mellitus without complications (principal); I10 Essential (primary) hypertension
CPT/HCPCS: 36415; 80053; 80061; 83036; 85025

== ENCOUNTER 2024-06-28 07:47 | Outpatient (REF) | payer MEDICARE, SELFPAY ==
[2024-06-28 13:39] LABS: Alanine Aminotransferase 34 U/L (0-40); Albumin Level 4.5 g/dL (3.5-5.0); Alkaline Phosphatase 97 U/L (39-117); Anion Gap 13 (12-20); Aspartate Amino Transferase 25 U/L (5-37); Bilirubin Total 0.9 mg/dL (0.0-1.0); Blood Urea Nitrogen 16 mg/dL (9-16); Calcium 9.8 mg/dL (8.4-10.2); Carbon Dioxide 26 mmol/L (22-29); Chloride 106 mmol/L (96-108); Cholesterol 116 mg/dL (<200); Estimated Glomerular Filt Rate > 60; Glucose Random 139 mg/dL (60-115); HDL Cholesterol 44 mg/dL (>40); LDL Cholesterol Calculated 59 mg/dL (<100); Potassium 4.1 mmol/L (3.3-5.1); Sodium 141 mmol/L (135-145); Total Protein 7.3 g/dL (6.5-8.0); Triglycerides 67 mg/dL (<150)
[2024-06-28 13:44] LABS: Estimated Average Glucose 140 mg/dL; Hemoglobin A1c % 6.5 % (<6.0)
== END 2024-06-28 07:48 | disposition home or self-care (01) ==
LOC: HO.MANLDS 07:47
PROVIDERS: Visit Provider Internal Medicine
DX: E11.9 Type 2 diabetes mellitus without complications (principal)
CPT/HCPCS: 36415; 80053; 80061; 83036

== ENCOUNTER 2024-07-05 14:36 | Outpatient (REF) | payer MEDICARE, SELFPAY ==
[2024-07-05 18:38] LABS: Folate 14.8 ng/mL (> or = 4.0); Vitamin B12 772 pg/mL (200-900)
== END 2024-07-05 14:37 | disposition home or self-care (01) ==
LOC: HO.MANLDS 14:36
PROVIDERS: Visit Provider Internal Medicine
DX: E53.8 Deficiency of other specified B group vitamins (principal)
CPT/HCPCS: 36415; 82607; 82746